=== PATIENT | female | born 1950 | race Caucasian/White ===

== ENCOUNTER 2017-06-07 11:31 | Inpatient (IN) | payer MEDICARE, OTHER ==
[2017-06-07] MEDS ORDERED: Ondansetron 4 MG/2 ML SDV IVPUSH ONE (12:23)
[2017-06-07] MEDS ORDERED: Sodium Chloride 0.9% 1,000 ML IV SCH (12:30)
[2017-06-07] MEDS: Sodium Chloride 0.9% 10 ML Syringe FLUSH PRN (12:42)
--- NOTE | 2017-06-07 13:43 | EDM.PDOCBH ---
ED HPI GENERAL MEDICAL PROBLEM - General Chief Complaint: Drug or Alcohol Abuse Stated Complaint: SENT BY [facility] Time Seen by Provider: 06/07/17 12:00 Source of Information: Reports: Patient, Family, Provider History Limitations: Reports: No Limitations - History of Present Illness INITIAL COMMENTS - FREE TEXT/NARRATIVE: The patient presents for detox. She has been a daily drinker of whiskey for years. She last drank Tuesday. Her family talked to her about her problems and brought her to [facility] for help. At [facility]'s office she was nauseated and vomited. She also was shaking. She does not have many other health problems. She is looking to get some help. She denies fever, chills, cough, chest pain, or shortness of breath. 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: Psychiatric History: Reports: Addiction - Past Surgical History Musculoskeletal Surgical History: Reports: Other (See Below) Social & Family History - Family History Family Medical History: Noncontributory Cardiac: Reports: [place] Neurological: Reports: CVA Endocrine/Metabolic: Reports: Diabetes, type II - Tobacco Use Smoking Status *Q: Current Every Day Smoker Years of Tobacco use: 30 Packs/Tins Daily: 0.2 Second Hand Smoke Exposure: No - Alcohol Use Days Per Week of Alcohol Use: 7 Number of Drinks Per Day: 10 Total Drinks Per Week: 70 Date of Last Drink: 07/03/17 - Recreational Drug Use Recreational Drug Use: No ED ROS GENERAL - Review of Systems Review Of Systems: See Below Constitutional: Reports: No Symptoms HEENT: Reports: No Symptoms Respiratory: Reports: No Symptoms Cardiovascular: Reports: No Symptoms Endocrine: Reports: No Symptoms GI/Abdominal: Reports: No Symptoms : Reports: No Symptoms Musculoskeletal: Reports: No Symptoms Skin: Reports: No Symptoms ED EXAM, BEHAVIORAL HEALTH - Physical Exam Exam: See Below Exam Limited By: No Limitations General Appearance: Alert, No Apparent Distress Ears: Normal External Exam Nose: Normal Inspection Head: Atraumatic, Normocephalic Neck: Normal Inspection Respiratory/Chest: No Respiratory Distress, Lungs Clear, Normal Breath Sounds Cardiovascular: Regular Rate, Rhythm, No Edema, No Murmur GI/Abdominal: Soft, Non-Tender, No Organomegaly, No Mass Back Exam: Normal Inspection Extremities: Normal Inspection COURSE, BEHAVIORAL HEALTH COMP - Course Vital Signs: Last Vital Signs Temp 98.5 F 06/07/17 11:42 Pulse 93 06/07/17 11:42 Resp 18 06/07/17 11:42 BP 143/102 H 06/07/17 11:42 Pulse Ox 98 06/07/17 11:42 Orders, Labs, Meds: Active Orders 24 hr Category Date Time Status Cardiac Monitoring [RC] . DIRECTED Care 06/07/17 12:22 Active Peripheral IV Care [RC] . DIRECTED Care 06/07/17 12:23 Active Sodium Chloride 0.9% [Normal Saline] 1,000 ml Med 06/07/17 12:30 Active IV .BOLUS Sodium Chloride 0.9% [Saline Flush] Med 06/07/17 12:22 Active 10 ml FLUSH ASDIRECTED PRN Peripheral IV Insertion Adult [OM.PC] Stat Oth 06/07/17 12:22 Ordered Medication Orders Sodium Chloride (Normal Saline) 1,000 mls @ 1,000 mls/hr IV .BOLUS JESSA Last Admin: 06/07/17 12:41 Dose: 1,000 mls/hr Sodium Chloride (Saline Flush) 10 ml FLUSH ASDIRECTED PRN PRN Reason: Keep Vein Open Last Admin: 06/07/17 12:42 Dose: 10 ml Laboratory Tests 06/07/17 06/07/17 06/07/17 Range/Units 12:40 12:40 12:52 WBC 4.06 (3.98-10.04) K/mm3 RBC 3.38 L (3.98-5.22) M/mm3 Hgb 12.5 (11.2-15.7) gm/L Hct 35.7 (34.1-44.9) % MCV 105.6 H (79.4-94.8) fl MCH 37.0 H (25.6-32.2) pg MCHC 35.0 (32.2-35.5) g/dl RDW Std Deviation 55.0 H (36.4-46.3) fL Plt Count 190 (182-369) K/mm3 MPV 9.2 L (9.4-12.3) fl Neut % (Auto) 64.0 (34.0-71.1) % Lymph % (Auto) 20.2 (19.3-51.7) % [place] % (Auto) 13.8 H (4.7-12.5) % Eos % (Auto) 0.5 L (0.7-5.8) Baso % (Auto) 1.0 (0.1-1.2) % Neut # (Auto) 2.60 (1.56-6.13) K/mm3 Lymph # (Auto) 0.82 L (1.18-3.74) K/mm3 [place] # (Auto) 0.56 H (0.24-0.36) K/mm3 Eos # (Auto) 0.02 L (0.04-0.36) K/mm3 Baso # (Auto) 0.04 (0.01-0.08) K/mm3 Manual Slide Review Abnormal smear Sodium 140 (136-145) mEq/L Potassium 3.5 (3.5-5.1) mEq/L Chloride 101 (98-107) mEq/L Carbon Dioxide 25 (21-32) mEq/L Anion Gap 17.5 H (5-15) BUN 8 (7-18) mg/dL Creatinine 0.6 (0.55-1.02) mg/dL Est Cr Clr Drug Dosing 64.46 mL/min Estimated GFR (MDRD) > 60 (>60) mL/min BUN/Creatinine Ratio 13.3 L (14-18) Glucose 109 (80-115) mg/dL Calcium 8.9 (8.5-10.1) mg/dL Total Bilirubin 1.3 H (0.2-1.0) mg/dL AST 100 H (15-37) U/L ALT 40 (14-59) U/L Alkaline Phosphatase 120 H (46-116) U/L Total Protein 7.6 (6.4-8.2) g/dl Albumin 3.7 (3.4-5.0) g/dl Globulin 3.9 gm/dL Albumin/Globulin Ratio 1.0 (1-2) Lipase 158 (73-393) U/L Urine Opiates Screen Negative (NEGATIVE) Ur Buprenorphine Scrn Negative (NEGATIVE) Ur Oxycodone Screen Negative (NEGATIVE) Urine Methadone Screen Negative (NEGATIVE) Ur Propoxyphene Screen Negative (NEGATIVE) Ur Barbiturates Screen Negative (NEGATIVE) Ur Tricyclics Screen Negative (NEGATIVE) Ur Phencyclidine Scrn Negative (NEGATIVE) Ur Amphetamine Screen Negative (NEGATIVE) U Methamphetamines Scrn Negative (NEGATIVE) U Benzodiazepines Scrn Negative (NEGATIVE) U Cocaine Metab Screen Negative (NEGATIVE) U Marijuana (THC) Screen Negative (NEGATIVE) Ethyl Alcohol 0.03 (0.00) gm% Medications Generic Name Dose Route Start Last Admin Trade Name Freq PRN Reason Stop Dose Admin Sodium Chloride 1,000 mls @ 1,000 mls/hr 06/07/17 12:30 06/07/17 12:41 Normal Saline IV 1,000 mls/hr .BOLUS JESSA Administration Sodium Chloride 10 ml 06/07/17 12:22 06/07/17 12:42 Saline Flush FLUSH 10 ml ASDIRECTED PRN Administration Keep Vein Open Discontinued Medications Generic Name Dose Route Start Last Admin Trade Name Freq PRN Reason Stop Dose Admin Ondansetron HCl 4 mg 06/07/17 12:23 06/07/17 12:42 Zofran IVPUSH 06/07/17 12:24 4 mg ONETIME ONE Administration Re-Assessment/Re-Exam: I ordered an IV NS 1L bolus, zofran 4mg IV, labs and UDS. Her WBC is normal at 4.06. Her Hgb is 12.5. Her anion gap was 17.5. He AST was elevated at 100. Her Alk Phos was elevated at 120. Her UDS was negative. Her ETOH was slightly elevated at 0.03. I called Dr Martinez and he agreed to the admission. Departure - Departure Time of Disposition: 14:20 Disposition: Admitted As Inpatient 64 Clinical Impression: Alcohol abuse Alcohol withdrawal syndrome Qualifiers: Complication of substance-induced condition: uncomplicated Qualified Code(s): F10.230 - Alcohol dependence with withdrawal, uncomplicated - Discharge Information - My Orders Last 24 Hours: My Active Orders 06/07/17 12:22 Cardiac Monitoring [RC] . DIRECTED Sodium Chloride 0.9% [Saline Flush] 10 ml FLUSH ASDIRECTED PRN Peripheral IV Insertion Adult [OM.PC] Stat 06/07/17 12:23 Peripheral IV Care [RC] . DIRECTED 06/07/17 12:30 Sodium Chloride 0.9% [Normal Saline] 1,000 ml IV .BOLUS - Assessment/Plan Last 24 Hours: My Active Orders 06/07/17 12:22 Cardiac Monitoring [RC] . DIRECTED Sodium Chloride 0.9% [Saline Flush] 10 ml FLUSH ASDIRECTED PRN Peripheral IV Insertion Adult [OM.PC] Stat 06/07/17 12:23 Peripheral IV Care [RC] . DIRECTED 06/07/17 12:30 Sodium Chloride 0.9% [Normal Saline] 1,000 ml IV .BOLUS
--- NOTE | 2017-06-07 14:21 | PCM.HP ---
H&P History of Present Illness - General Date of Service: 06/07/17 Admit Problem/Dx: ETOH Withdrawal Source of Information: Patient, Family, Old Records, Provider, RN Notes Reviewed History Limitations: Reports: Physical Impairment - History of Present Illness Initial Comments - Free Text/Narative: This is a 66 yo elderly white female with past medical hx/o hypertension, hyperlipidemia, henderson's palsy, nicotine dependence, osteoporosis, and glaucoma who presents to the emergency department for alcohol detoxification and was found to have a blood alcohol level of 0.03 Patient carries a history of chronic alcohol abuse. She drinks about half a fifth of whiskey a day. She also carries a hx/o untreated depression according to her. Her depression got worse which led to increased alcohol intake after the of her due to cancer about 3.5 years ago. Her alcoholism was further aggravated by the recent of her 2 brothers-one in October of 2016 and the other in November of this year. Patient was initially seen today at the [facility] substance abuse clinic. However she started having symptoms and therefore she was referred to the emergency department for further treatment. Her initial workup in the emergency department shows a CBC remarkable for RBC of 3.38, MVC of 105.6, MCH of 37, monophils of 13.8%, eosinophils of 0.5%, lymphocytes of 0.82, and monocytes of 0.56. Her chemistry is significant for an anion gap of 17.5, total bilirubin of 1.3, AST of 100, and alkaline phosphatase of 120. Her UDS is negative but her JESE level is 0.03. Patient is being admitted for alcohol detoxification. She is full code. 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: Psychiatric History: Reports: Addiction - Past Surgical History Musculoskeletal Surgical History: Reports: Other (See Below) Social & Family History - Family History Family Medical History: Noncontributory Cardiac: Reports: [place] Neurological: Reports: CVA Endocrine/Metabolic: Reports: Diabetes, type II - Tobacco Use Smoking Status *Q: Current Every Day Smoker Years of Tobacco use: 30 Packs/Tins Daily: 0.2 Second Hand Smoke Exposure: No - Alcohol Use Days Per Week of Alcohol Use: 7 Number of Drinks Per Day: 10 Total Drinks Per Week: 70 Date of Last Drink: 07/03/17 - Recreational Drug Use Recreational Drug Use: No H&P Review of Systems - Review of Systems: Review Of Systems: See Below General: Denies: Fever, Chills, Malaise, Weakness, Fatigue HEENT: Reports: No Symptoms Pulmonary: Denies: Shortness of Breath Cardiovascular: Denies: Chest Pain, Palpitations, Dyspnea on Exertion, Lightheadedness Gastrointestinal: Reports: Nausea, Vomiting. Denies: Abdominal Pain, Decreased Appetite Genitourinary: Reports: No Symptoms Musculoskeletal: Reports: No Symptoms Skin: Denies: Jaundice, Pallor, Rash Psychiatric: Denies: Confusion, Depression, Anxiety, Agitation, Cravings, Hallucinations, Suicidal Ideation Neurological: Reports: Tremors, Gait Disturbance. Denies: Confusion, Pre- Existing Deficit, Difficulty Walking, Weakness Hematologic/Lymphatic: Reports: No Symptoms Immunologic: Reports: No Symptoms Exam - Exam Exam: See Below - Vital Signs Vital Signs: Last Vital Signs Temp 36.9 C 06/07/17 11:42 Pulse 93 06/07/17 11:42 Resp 18 06/07/17 11:42 BP 143/102 H 06/07/17 11:42 Pulse Ox 98 06/07/17 11:42 Weight: 53.07 kg - Exam General: Alert, Oriented, Cooperative, Other (facial asymmetry) HEENT: Conjunctiva Clear, EACs Clear, Hearing Intact, Mucosa Moist & [place], Nares Patent, Posterior Pharynx Clear, Pupils Equal, Other (Lateral Nystagmus). No: EOMI Neck: Supple, Trachea Midline, Full Range of Motion, Thyromegaly Lungs: Clear to Auscultation, Normal Respiratory Effort Cardiovascular: Regular Rate, Regular Rhythm GI/Abdominal Exam: Normal Bowel Sounds, Soft, Non-Tender, No Organomegaly, No Distention, No Abnormal Bruit, No Mass, Pelvis Stable (Female) Exam: Deferred Back Exam: Normal Inspection, Decreased Range of Motion Extremities: Normal Inspection, Normal Range of Motion, Non-Tender, No Pedal Edema, Normal Capillary Refill Peripheral Pulses: 2+: Posterior Tibial (L), Posterior Tibial (R), Dorsalis Pedis (L), Dorsalis Pedis (R) Skin: Warm, Dry, Intact Neuro Extensive - Mental Status: Oriented x3, Normal Cognition, Memory Intact Neuro Extensive - Motor, Sensory, Reflexes: CN II-XII Intact (Limited but intact ), Abnormal Gait Psychiatric: Alert, Normal Affect, Withdrawal Symptoms (mild tremor and nystagmus). No: Anxious, Agitated, Suicidal Ideation, Homicidal Ideation, Hallucinations - Patient Data Lab Results Last 24 hrs: Laboratory Results - last 24 hr 06/07/17 06/07/17 06/07/17 Range/Units 12:40 12:40 12:52 WBC 4.06 (3.98-10.04) K/mm3 RBC 3.38 L (3.98-5.22) M/mm3 Hgb 12.5 (11.2-15.7) gm/L Hct 35.7 (34.1-44.9) % MCV 105.6 H (79.4-94.8) fl MCH 37.0 H (25.6-32.2) pg MCHC 35.0 (32.2-35.5) g/dl RDW Std Deviation 55.0 H (36.4-46.3) fL Plt Count 190 (182-369) K/mm3 MPV 9.2 L (9.4-12.3) fl Neut % (Auto) 64.0 (34.0-71.1) % Lymph % (Auto) 20.2 (19.3-51.7) % [place] % (Auto) 13.8 H (4.7-12.5) % Eos % (Auto) 0.5 L (0.7-5.8) Baso % (Auto) 1.0 (0.1-1.2) % Neut # (Auto) 2.60 (1.56-6.13) K/mm3 Lymph # (Auto) 0.82 L (1.18-3.74) K/mm3 [place] # (Auto) 0.56 H (0.24-0.36) K/mm3 Eos # (Auto) 0.02 L (0.04-0.36) K/mm3 Baso # (Auto) 0.04 (0.01-0.08) K/mm3 Manual Slide Review Abnormal smear Sodium 140 (136-145) mEq/L Potassium 3.5 (3.5-5.1) mEq/L Chloride 101 (98-107) mEq/L Carbon Dioxide 25 (21-32) mEq/L Anion Gap 17.5 H (5-15) BUN 8 (7-18) mg/dL Creatinine 0.6 (0.55-1.02) mg/dL Est Cr Clr Drug Dosing 64.46 mL/min Estimated GFR (MDRD) > 60 (>60) mL/min BUN/Creatinine Ratio 13.3 L (14-18) Glucose 109 (80-115) mg/dL Calcium 8.9 (8.5-10.1) mg/dL Total Bilirubin 1.3 H (0.2-1.0) mg/dL AST 100 H (15-37) U/L ALT 40 (14-59) U/L Alkaline Phosphatase 120 H (46-116) U/L Total Protein 7.6 (6.4-8.2) g/dl Albumin 3.7 (3.4-5.0) g/dl Globulin 3.9 gm/dL Albumin/Globulin Ratio 1.0 (1-2) Lipase 158 (73-393) U/L Urine Opiates Screen Negative (NEGATIVE) Ur Buprenorphine Scrn Negative (NEGATIVE) Ur Oxycodone Screen Negative (NEGATIVE) Urine Methadone Screen Negative (NEGATIVE) Ur Propoxyphene Screen Negative (NEGATIVE) Ur Barbiturates Screen Negative (NEGATIVE) Ur Tricyclics Screen Negative (NEGATIVE) Ur Phencyclidine Scrn Negative (NEGATIVE) Ur Amphetamine Screen Negative (NEGATIVE) U Methamphetamines Scrn Negative (NEGATIVE) U Benzodiazepines Scrn Negative (NEGATIVE) U Cocaine Metab Screen Negative (NEGATIVE) U Marijuana (THC) Screen Negative (NEGATIVE) Ethyl Alcohol 0.03 (0.00) gm% Result Diagrams: 06/07/17 12:40 06/07/17 12:40 *Q Meaningful Use (ADM) - VTE *Q VTE Criteria *Q: - Stroke *Q Stroke Criteria *Q: - AMI *Q AMI Criteria *Q: Problem List Initiated/Reviewed/Updated: Yes Orders Last 24hrs: Active Orders 24 hr Category Date Time Status Cardiac Monitoring [RC] . DIRECTED Care 06/07/17 12:22 Active Peripheral IV Care [RC] . DIRECTED Care 06/07/17 12:23 Active Sodium Chloride 0.9% [Normal Saline] 1,000 ml Med 06/07/17 12:30 Active IV .BOLUS Sodium Chloride 0.9% [Saline Flush] Med 06/07/17 12:22 Active 10 ml FLUSH ASDIRECTED PRN Peripheral IV Insertion Adult [OM.PC] Stat Oth 06/07/17 12:22 Ordered Medication Orders Sodium Chloride (Normal Saline) 1,000 mls @ 1,000 mls/hr IV .BOLUS JESSA Last Admin: 06/07/17 12:41 Dose: 1,000 mls/hr Sodium Chloride (Saline Flush) 10 ml FLUSH ASDIRECTED PRN PRN Reason: Keep Vein Open Last Admin: 06/07/17 12:42 Dose: 10 ml Assessment/Plan Comment:: Assessment: Acute: ETOH Intoxication with Mild Withdrawal Symptoms - JESE level 0.03 - Presented to [facility] symptomatic and was referred to ED for Detox - CIWA protocol: CIWA score on presentation to ED was mild - Ativan/Librium/Clonidine/Topamax - Hydralzine and IVP BB for HR/BP control - Ativan for Abortive Seizure and Withdrawal Symptoms Chronic ETOH Abuse - Drinks 1/2 a fifth of whiskey a day - Her drinking got worse after she lost her to cancer about 3.5 years ago and further aggravated by recent deaths of her 2 brothers: Last Oct and November of this year - Risk factor: Depression untreated - SA/Psych consult Chronic Depression - Does not sleep well at night - Lost of interest and just wants to stay home a lot - Got worse when she lost her and aggravated recent lost of her 2 siblings - She was never suicidal or homocidal - Psych consult Tobacco Dependence - Smokes 6 cigarettes a day - Nicotine patch daily - Counseled on Smoking Cessation Chronic: HTN HLD Osteoporosis Glaucoma [place] Palsy Depression Plan: Admit to ICU MVI, Folic, Acid and Thiamine CIWA protocol Mg Level this am Obtain home med list from her local pharmacy Vit B12 level (MCV elevated) Ativan for Abortive Seizure and Withdrawal Symptoms PRN meds for Withdrawal Symptoms Aspiration/Seizure Precautions SW/CM d/c planning SA/Psych consult Code Status: 1
[2017-06-07] MEDS ORDERED: Metoclopramide 10 MG/2 ML SDV IVPUSH ONE (14:31)
[2017-06-07] MEDS ORDERED: LORazepam 2 MG/ML MDV IVPUSH ONE (14:32)
[2017-06-07] MEDS ORDERED: Metoprolol Tartrate 5 MG/5 ML SDV IVPUSH PRN (14:55)
[2017-06-07] MEDS ORDERED: Albuterol/Ipratropium 3.0-0.5 MG/3 ML Neb Soln NEB PRN (14:55)
[2017-06-07] MEDS ORDERED: Promethazine 12.5 MG in Sodium Chloride 0.9% 50 ML IV PRN (14:55)
[2017-06-07] MEDS ORDERED: Ondansetron 4 MG/2 ML SDV IV PRN (14:55)
[2017-06-07] MEDS ORDERED: Docusate Sodium 100 MG Cap PO PRN (14:55)
[2017-06-07] MEDS ORDERED: Bisacodyl 5 MG Tab PO PRN (14:55)
[2017-06-07] MEDS ORDERED: Acetaminophen/HYDROcodone 325-5 MG Tab PO PRN (14:55)
[2017-06-07] MEDS ORDERED: LORazepam 2 MG/ML MDV IVPUSH PRN ×3 (14:55→20:10)
[2017-06-07] MEDS ORDERED: Polyethylene Glycol 3350 Powder 17 GM Packet PO PRN (14:55)
[2017-06-07] MEDS ORDERED: HYDROmorphone 0.5 MG/0.5 ML Syringe IVPUSH PRN (14:55)
[2017-06-07] MEDS ORDERED: Acetaminophen 325 MG Tab PO PRN (14:55)
[2017-06-07] MEDS ORDERED: hydrALAZINE 20 MG/ML SDV IVPUSH PRN (14:55)
[2017-06-07] MEDS ORDERED: Folic Acid 1 MG Tab PO ONE ×2 (14:57→18:00)
[2017-06-07] MEDS ORDERED: chlordiazePOXIDE 25 MG Cap PO ONE ×2 (15:01→18:00)
[2017-06-07] MEDS ORDERED: cloNIDine 0.1 MG Tab PO PRN (15:05)
[2017-06-07] MEDS ORDERED: Cyanocobalamin (Vitamin B12) 1,000 MCG/ML SDV SUBCUT ONE (16:00)
[2017-06-07] MEDS ORDERED: QUEtiapine 25 MG Tab PO ONE (16:00)
[2017-06-07] MEDS ORDERED: Famotidine 20 MG/2 ML SDV IVPUSH ONE (16:00)
[2017-06-07] MEDS ORDERED: Nicotine 14 MG/24 Hr Patch TRDERM ONE (16:23)
[2017-06-07] MEDS ORDERED: Thiamine 200 MG in Sodium Chloride 0.9% 100 ML IV ONE (16:30)
[2017-06-07] MEDS: Sodium Chloride 0.9% 1,000 ML IV SCH (17:34)
[2017-06-07] MEDS: QUEtiapine 25 MG Tab PO SCH (20:34)
[2017-06-07] MEDS ORDERED: chlordiazePOXIDE 25 MG Cap PO PRN (21:00)
[2017-06-07] MEDS ORDERED: Non-Formulary Medication 1 Each (Alendronate 70 MG) PO SCH (22:30)
[2017-06-08] MEDS: Sodium Chloride 0.9% 1,000 ML IV SCH ×3 (03:11→23:41)
--- NOTE | 2017-06-08 07:59 | PCM.PN ---
- General Info Date of Service: 06/08/17 Admission Dx/Problem (Free Text): ETOH Withdrawal Subjective Update: Follow Up Functional Status: Reports: Pain Controlled, Tolerating Diet, Ambulating, Urinating - Review of Systems General: Reports: Weakness. Denies: Fever, Fatigue, Malaise, Chills HEENT: Reports: No Symptoms Pulmonary: Denies: Shortness of Breath Cardiovascular: Denies: Chest Pain, Palpitations, Dyspnea on Exertion Gastrointestinal: Reports: Diarrhea, Flatus. Denies: Abdominal Pain, Decreased Appetite, Difficulty Swallowing, Nausea, Vomiting Genitourinary: Denies: Dysuria Musculoskeletal: Reports: No Symptoms Skin: Denies: Cyanosis, Rash Neurological: Reports: Weakness, Gait Disturbance. Denies: Confusion Psychiatric: Denies: Depression, Anxiety, Agitation, Hallucinations, Suicidal Ideation Systems Review Comment:: No overnight issues. She slept really good. She states "I feel good but weak". She is not suicidal. Her CIWA is 5 this am. Her appetite has improved. K is 2.4 and Mg is 1.1. PT and OT have not been in to see her. - Patient Data Vitals - Most Recent: Last Vital Signs Temp 36.3 C 06/08/17 00:00 Pulse 90 06/08/17 04:00 Resp 20 06/08/17 04:00 BP 146/86 H 06/08/17 04:00 Pulse Ox 96 06/08/17 04:00 Weight - Most Recent: 57.017 kg I&O - Last 24 Hours: Intake & Output 06/07/17 06/08/17 06/08/17 22:59 06:59 14:59 Intake Total 200 1635 Output Total 650 950 Balance -450 685 Lab Results Last 24 Hours: Laboratory Results - last 24 hr 06/08/17 06/08/17 Range/Units 05:54 05:54 WBC 4.71 (3.98-10.04) K/mm3 RBC 2.89 L (3.98-5.22) M/mm3 Hgb 10.3 L (11.2-15.7) gm/L Hct 31.0 L (34.1-44.9) % MCV 107.3 H (79.4-94.8) fl MCH 35.6 H (25.6-32.2) pg MCHC 33.2 (32.2-35.5) g/dl RDW Std Deviation 55.2 H (36.4-46.3) fL Plt Count 156 L (182-369) K/mm3 MPV 9.2 L (9.4-12.3) fl Neut % (Auto) 64.4 (34.0-71.1) % Lymph % (Auto) 22.5 (19.3-51.7) % Graham % (Auto) 11.3 (4.7-12.5) % Eos % (Auto) 0.6 L (0.7-5.8) Baso % (Auto) 0.6 (0.1-1.2) % Neut # (Auto) 3.03 (1.56-6.13) K/mm3 Lymph # (Auto) 1.06 L (1.18-3.74) K/mm3 Graham # (Auto) 0.53 H (0.24-0.36) K/mm3 Eos # (Auto) 0.03 L (0.04-0.36) K/mm3 Baso # (Auto) 0.03 (0.01-0.08) K/mm3 Manual Slide Review Abnormal smear Sodium 142 (136-145) mEq/L Potassium 2.4 L* (3.5-5.1) mEq/L Chloride 106 (98-107) mEq/L Carbon Dioxide 26 (21-32) mEq/L Anion Gap 12.4 (5-15) BUN 4 L (7-18) mg/dL Creatinine 0.6 (0.55-1.02) mg/dL Est Cr Clr Drug Dosing 64.46 mL/min Estimated GFR (MDRD) > 60 (>60) mL/min BUN/Creatinine Ratio 6.7 L (14-18) Glucose 103 (80-115) mg/dL Calcium 7.3 L (8.5-10.1) mg/dL Magnesium 1.1 L (1.8-2.4) mg/dl Med Orders - Current: Current Medications Acetaminophen (Tylenol) 650 mg PO Q4H PRN PRN Reason: Pain (Mild 1-3)/fever Hydrocodone Bitart/Acetaminophen (Jackson 325-5 Mg) 1 tab PO Q4H PRN PRN Reason: Pain (moderate 4-6) Albuterol/Ipratropium (Duoneb 3.0-0.5 Mg/3 Ml) 3 ml NEB Q4H PRN PRN Reason: Shortness Of Breath/wheezing Bisacodyl (Dulcolax) 5 mg PO DAILY PRN PRN Reason: Constipation Chlordiazepoxide HCl (Librium) 25 mg PO TID PRN PRN Reason: Withdrawal Symptoms Last Admin: 06/07/17 20:34 Dose: 25 mg Clonidine HCl (Catapres) 0.1 mg PO Q8H PRN PRN Reason: Withdrawal Symptoms Last Admin: 06/07/17 20:34 Dose: 0.1 mg Cyanocobalamin (Vitamin B12) 1,000 mcg PO DAILY [facility] Docusate Sodium (Colace) 100 mg PO BID PRN PRN Reason: Constipation Ezetimibe (Zetia) 10 mg PO DAILY [facility] Famotidine (Pepcid) 20 mg PO DAILY [facility] Fluoxetine HCl (Prozac) 20 mg PO DAILY [facility] Folic Acid (Folic Acid) 1 mg PO DAILY [facility] Hydralazine HCl (Apresoline) 20 mg IVPUSH Q4H PRN PRN Reason: Hypertension Hydromorphone HCl (Dilaudid) 0.25 mg IVPUSH Q2H PRN PRN Reason: Pain (severe 7-10) Promethazine HCl 12.5 mg/ (Sodium Chloride) 50.5 mls @ 100 mls/hr IV Q6H PRN PRN Reason: Nausea/Vomiting Sodium Chloride (Normal Saline) 1,000 mls @ 100 mls/hr IV ASDIRECTED [facility] Last Admin: 06/08/17 03:11 Dose: 100 mls/hr Potassium Chloride 10 meq/ (Premix) 100 mls @ 100 mls/hr IV Q1H [facility] Stop: 06/08/17 13:29 Magnesium Sulfate 2 gm/ Premix 50 mls @ 25 mls/hr IV Q2H [facility] Stop: 06/08/17 13:44 Latanoprost (Xalatan 0.005% Ophth Soln) 0 ml EYEBOTH BEDTIME [facility] Lorazepam (Ativan) 2 mg IVPUSH Q4H PRN PRN Reason: Seizures Lorazepam (Ativan) 0 mg IVPUSH ASDIRECTED PRN; Protocol PRN Reason: Withdrawal Symptoms Last Admin: 06/07/17 20:34 Dose: 1 mg Magnesium Sulfate (Pharmacy To Dose - Magnesium Replacement) 1 dose .XX ASDIRECTED [facility] Metoprolol Tartrate (Lopressor) 5 mg IVPUSH Q4H PRN PRN Reason: Tachycardia Miscellaneous Information (Remove Patch) 1 ea TRDERM DAILY [facility] Multivitamins (Thera) 1 each PO DAILY [facility] Nicotine (Habitrol) 14 mg TRDERM DAILY [facility] Ondansetron HCl (Zofran) 4 mg IV Q6H PRN PRN Reason: Nausea/Vomiting Polyethylene Glycol (Miralax) 17 gm PO DAILY PRN PRN Reason: Constipation Potassium Chloride (Pharmacy To Dose - Potassium Replacement) 1 dose .XX ASDIRECTED [facility] Quetiapine Fumarate (Seroquel) 25 mg PO BID [facility] Last Admin: 06/07/17 20:34 Dose: 25 mg Senna/Docusate Sodium (Senna Plus) 1 tab PO BID PRN PRN Reason: Constipation Simvastatin (Zocor) 10 mg PO DAILY [facility] Sodium Chloride (Saline Flush) 10 ml FLUSH ASDIRECTED PRN PRN Reason: Keep Vein Open Last Admin: 06/07/17 12:42 Dose: 10 ml Thiamine HCl (Vitamin B-1) 100 mg PO BEDTIME [facility] Vitamin B Complex/Vit C/Folic Acid (Nephrocaps) 1 tab PO DAILY [facility] Discontinued Medications Chlordiazepoxide HCl (Librium) 50 mg PO ONETIME ONE Stop: 06/07/17 15:02 Last Admin: 06/07/17 18:01 Dose: Not Given Chlordiazepoxide HCl (Librium) 50 mg PO ONETIME ONE Stop: 06/07/17 18:01 Last Admin: 06/07/17 17:58 Dose: 50 mg Cyanocobalamin (Vitamin B12) 1,000 mcg SUBCUT ONETIME ONE Stop: 06/07/17 16:01 Last Admin: 06/07/17 17:28 Dose: 1,000 mcg Famotidine (Pepcid) 20 mg IVPUSH ONETIME ONE Stop: 06/07/17 16:01 Last Admin: 06/07/17 17:28 Dose: 20 mg Folic Acid (Folic Acid) 1 mg PO ONETIME ONE Stop: 06/07/17 14:58 Last Admin: 06/07/17 18:01 Dose: Not Given Folic Acid (Folic Acid) 1 mg PO ONETIME ONE Stop: 06/07/17 18:01 Last Admin: 06/07/17 17:58 Dose: 1 mg Sodium Chloride (Normal Saline) 1,000 mls @ 1,000 mls/hr IV .BOLUS [facility] Last Admin: 06/07/17 12:41 Dose: 1,000 mls/hr Thiamine HCl 200 mg/ Sodium (Chloride) 102 mls @ 50 mls/hr IV ONETIME ONE Stop: 06/07/17 18:32 Last Admin: 06/07/17 17:28 Dose: 50 mls/hr Lorazepam (Ativan) 0.25 mg IVPUSH ONETIME ONE Stop: 06/07/17 14:33 Last Admin: 06/07/17 14:55 Dose: 0.25 mg Lorazepam (Ativan) 0 mg IVPUSH Q4H PRN; Protocol PRN Reason: Withdrawal Symptoms Last Admin: 06/07/17 18:00 Dose: 1 mg Metoclopramide HCl (Reglan) 5 mg IVPUSH ONETIME ONE Stop: 06/07/17 14:32 Last Admin: 06/07/17 14:53 Dose: 5 mg Nicotine (Habitrol) 14 mg TRDERM ONETIME ONE Stop: 06/07/17 16:24 Last Admin: 06/07/17 17:29 Dose: 14 mg Non-Formulary Medication (Alendronate) 70 mg PO WEEKLY [facility] Ondansetron HCl (Zofran) 4 mg IVPUSH ONETIME ONE Stop: 06/07/17 12:24 Last Admin: 06/07/17 12:42 Dose: 4 mg Quetiapine Fumarate (Seroquel) 25 mg PO ONETIME ONE Stop: 06/07/17 16:01 Last Admin: 06/07/17 17:28 Dose: 25 mg - Exam General: Alert, Oriented, Cooperative, No Acute Distress, Other (Facial Asymmetry) HEENT: Pupils Equal, Pupils Reactive, EOMI, Mucous Membr. Moist/[place] Neck: Supple, Trachea Midline, No JVD, No Thyromegaly Lungs: Clear to Auscultation, Normal Respiratory Effort Cardiovascular: Regular Rate, Regular Rhythm GI/Abdominal Exam: Normal Bowel Sounds, Soft, Non-Tender, No Organomegaly, No Distention, No Abnormal Bruit (Female) Exam: Deferred Back Exam: Normal Inspection, Decreased Range of Motion Extremities: Normal Inspection, Normal Range of Motion, Non-Tender, No Pedal Edema, Normal Capillary Refill Peripheral Pulses: 2+: Dorsalis Pedis (L), Dorsalis Pedis (R) Skin: Warm, Dry, Intact Neurological: No New Focal Deficit Psy/Mental Status: Alert, Normal Affect, Normal Mood - Problem List Review Problem List Initiated/Reviewed/Updated: Yes - My Orders Last 24 Hours: My Active Orders 06/07/17 14:55 Height and Weight [RC] 04 Intake and Output [RC] 04,16 Oxygen Therapy [RC] PRN Up With Assistance [RC] ASDIRECTED VTE/DVT Education [RC] , Vital Signs [RC] Q4HR Acetaminophen [Tylenol] 650 mg PO Q4H PRN Acetaminophen/HYDROcodone [Jackson 325-5 MG] 1 tab PO Q4H PRN Albuterol/Ipratropium [DuoNeb 3.0-0.5 MG/3 ML] 3 ml NEB Q4H PRN Bisacodyl [Dulcolax] 5 mg PO DAILY PRN Docusate Sodium [Colace] 100 mg PO BID PRN Docusate Sodium/Sennosides [Senna Plus] 1 tab PO BID PRN HYDROmorphone [Dilaudid] 0.25 mg IVPUSH Q2H PRN LORazepam [Ativan] 2 mg IVPUSH Q4H PRN Metoprolol Tartrate [Lopressor] 5 mg IVPUSH Q4H PRN Ondansetron [Zofran] 4 mg IV Q6H PRN Polyethylene Glycol 3350 [MiraLAX] 17 gm PO DAILY PRN Promethazine [Phenergan] 12.5 mg Sodium Chloride 0.9% [Normal Saline] 50 ml IV Q6H hydrALAZINE [Apresoline] 20 mg IVPUSH Q4H PRN Sequential Compression Device [OM.PC] Per Unit Routine Resuscitation Status Routine 06/07/17 14:56 Antiembolic Devices [RC] QSHIFT RT Aerosol Therapy [RC] ASDIRECTED Consult to Case Management [CONS] Routine Consult to [employer] Tutor [CONS] Routine Consult to Spiritual Care [CONS] Routine OT Evaluation and Treatment [CONS] Routine PT Evaluation and Treatment [CONS] Routine 06/07/17 15:00 CIWAA Assessment [RC] Q4H 06/07/17 15:04 Consult to Physician [CONS] Routine 06/07/17 15:05 cloNIDine [Catapres] 0.1 mg PO Q8H PRN 06/07/17 15:15 Sodium Chloride 0.9% [Normal Saline] 1,000 ml IV ASDIRECTED 06/07/17 16:30 Magnesium Rep Pharmacy to Dose [Pharmacy to Dose - Magnesium Replacement] 1 dose .XX ASDIRECTED Potassium Rep Pharmacy to Dose [Pharmacy to Dose - Potassium Replacement] 1 dose .XX ASDIRECTED 06/07/17 20:10 LORazepam [Ativan] See Protocol IVPUSH ASDIRECTED PRN 06/07/17 21:00 QUEtiapine [SEROquel] 25 mg PO BID chlordiazePOXIDE [Librium] 25 mg PO TID PRN 06/07/17 Dinner Regular Diet [DIET] 06/08/17 07:45 Magnesium Sulfate/Water [Magnesium Sulfate 2 GM in Water 50 ML] 2 gm Premix Bag 1 bag IV Q2H 06/08/17 09:00 Biotin/FA/Vit C/Vit B Complex [Nephrocaps] 1 tab PO DAILY Cyanocobalamin (Vitamin B12) [Vitamin B12] 1,000 mcg PO DAILY Ezetimibe [Zetia] 10 mg PO DAILY Famotidine [Pepcid] 20 mg PO DAILY Folic Acid 1 mg PO DAILY Multivitamins,Therapeutic [Thera] 1 each PO DAILY Nicotine [Habitrol] 14 mg TRDERM DAILY Remove Patch 1 ea TRDERM DAILY Simvastatin [Zocor] 10 mg PO DAILY 06/08/17 21:00 Latanoprost [Xalatan 0.005% Ophth Soln] 0 ml EYEBOTH BEDTIME Thiamine [Vitamin B-1] 100 mg PO BEDTIME 06/09/17 05:11 BASIC METABOLIC PANEL,BMP [CHEM] AM MAGNESIUM [CHEM] AM - Plan Plan:: Assessment: Acute: Chronic ETOH Abuse, CIWA 5 - Drinks 1/2 a fifth of whiskey a day - Her drinking got worse after she lost her to cancer about 3.5 years ago and further aggravated by recent deaths of her 2 brothers: Last Oct and November of this year - Risk factor: Depression untreated - Psych consulted - SA consult but was cancelled Acute on Chronic Depression, currently not suicidal - Does not sleep well at night - Lost of interest and just wants to stay home a lot - Got worse when she lost her and aggravated recent lost of her 2 siblings - She was never suicidal or homocidal - Psych consulted: recommended Prozac 20 mg po daily and AA/Pastoral Care Electrolytes Abnormality Hypokalemia and Hypomagnesemia - 2/2 inadequate intake - K 2.4 and Mg 1.1 - Repeat lab this afternoon - Pharmacy to replete and monitor Tobacco Dependence - Smokes 6 cigarettes a day - Nicotine patch daily - Counseled on Smoking Cessation Diarrhea - Watery x 3 - C. Diff test - PRN Imodium and Non-greasy meal Generalized Weakness - Unsteady gait/Wobbly - PT/OT evaluation - TFT and Vit D level Resolved: S/p ETOH Intoxication with Mild Withdrawal Symptoms - JESE level 0.03 - Presented to [facility] symptomatic and was referred to ED for Detox - CIWA protocol: CIWA score on presentation to ED was mild - Ativan/Librium/Clonidine/Topamax - Hydralzine and IVP BB for HR/BP control - Ativan for Abortive Seizure and Withdrawal Symptoms Chronic: HTN HLD Osteoporosis Glaucoma [place] Palsy Depression Plan: Patient is clinically stable Transfer to [facility] w/o Tele Continue current treatment Routine AM Labs Vit B12 level is normal, will d/c B12 supplement SW/CM d/c planning consult, patient was referred her by Carlos Sampson LAC Code Status: 1 Patient wants to leave Tuesday due to weakness and unsteady gait. She feels, she would not be ready tomorrow or in a couple of days. Informed patient, she still needs to be evaluated by PT/OT and d/c will be based on their recommendations.
[2017-06-08] MEDS: Multivitamins,Therapeutic Tab PO SCH (08:12)
[2017-06-08] MEDS: Potassium Chloride 10 MEQ in Premix Bag 1 BAG IV SCH ×6 (08:12→14:41)
[2017-06-08] MEDS: Famotidine 20 MG Tab PO SCH (08:12)
[2017-06-08] MEDS: Nicotine 14 MG/24 Hr Patch TRDERM SCH (08:12)
[2017-06-08] MEDS: Ezetimibe 10 MG Tab PO SCH (08:13)
[2017-06-08] MEDS: QUEtiapine 25 MG Tab PO SCH ×2 (08:13→20:07)
[2017-06-08] MEDS: Folic Acid 1 MG Tab PO SCH (08:13)
[2017-06-08] MEDS: FLUoxetine 20 MG Cap PO SCH (08:13)
[2017-06-08] MEDS: Simvastatin 10 MG Tab PO SCH (08:13)
[2017-06-08] MEDS: Biotin/Folic Acid/Vitamin C/Vitamin B Complex Tab PO SCH (08:21)
[2017-06-08] MEDS: Remove Patch **NICOTINE TRDERM SCH (08:41)
[2017-06-08] MEDS ORDERED: Cyanocobalamin (Vitamin B12) 1,000 MCG Tab PO SCH (09:00)
[2017-06-08] MEDS: Magnesium Sulfate/Water 2 GM in Premix Bag 1 BAG IV SCH ×3 (10:46→14:46)
[2017-06-08] MEDS ORDERED: Loperamide 2 MG Cap PO PRN (18:14)
[2017-06-08] MEDS: Latanoprost 0.005% Ophth Soln 2.5 ML Bottle EYEBOTH SCH (20:07)
[2017-06-08] MEDS: Thiamine 100 MG Tab PO SCH (20:07)
[2017-06-09] MEDS: FLUoxetine 20 MG Cap PO SCH (08:57)
[2017-06-09] MEDS: Ezetimibe 10 MG Tab PO SCH (08:57)
[2017-06-09] MEDS: QUEtiapine 25 MG Tab PO SCH ×2 (08:58→20:50)
[2017-06-09] MEDS: Nicotine 14 MG/24 Hr Patch TRDERM SCH (08:58)
[2017-06-09] MEDS: Simvastatin 10 MG Tab PO SCH (08:58)
[2017-06-09] MEDS: Multivitamins,Therapeutic Tab PO SCH (08:58)
[2017-06-09] MEDS: Folic Acid 1 MG Tab PO SCH (08:58)
[2017-06-09] MEDS: Famotidine 20 MG Tab PO SCH (08:58)
[2017-06-09] MEDS: Biotin/Folic Acid/Vitamin C/Vitamin B Complex Tab PO SCH (08:59)
[2017-06-09] MEDS: Remove Patch **NICOTINE TRDERM SCH (09:04)
[2017-06-09] MEDS: Potassium Chloride 20 MEQ Tab.ER PO SCH ×2 (09:58→13:27)
--- NOTE | 2017-06-09 10:27 | PCM.PN ---
- General Info Date of Service: 06/09/17 Admission Dx/Problem (Free Text): ETOH Withdrawal Subjective Update: Follow Up Functional Status: Reports: Pain Controlled, Tolerating Diet, Ambulating, Urinating. Denies: New Symptoms - Review of Systems General: Denies: Fever, Weakness, Fatigue, Malaise, Chills HEENT: Reports: No Symptoms Pulmonary: Denies: Shortness of Breath Cardiovascular: Denies: Chest Pain Gastrointestinal: Denies: Abdominal Pain, Nausea, Vomiting Genitourinary: Reports: No Symptoms Musculoskeletal: Reports: No Symptoms Skin: Reports: No Symptoms Neurological: Reports: No Symptoms, Weakness (mild), Gait Disturbance. Denies: Confusion, Difficulty Walking Psychiatric: Denies: Depression, Anxiety, Agitation, Hallucinations, Suicidal Ideation, Homicidal Ideation Systems Review Comment:: No overnight or acute issues. She is doing relatively well. She has no new complaints. - Patient Data Vitals - Most Recent: Last Vital Signs Temp 36.6 C 06/09/17 09:00 Pulse 78 06/09/17 03:00 Resp 16 06/09/17 09:00 BP 124/78 06/09/17 09:00 Pulse Ox 97 06/09/17 09:00 Weight - Most Recent: 57.198 kg I&O - Last 24 Hours: Intake & Output 06/08/17 06/09/17 06/09/17 22:59 06:59 14:59 Intake Total 2723 1793 Output Total 1200 1300 Balance 1523 493 Lab Results Last 24 Hours: Laboratory Results - last 24 hr 06/08/17 06/08/17 06/09/17 Range/Units 15:00 15:00 05:45 WBC (3.98-10.04) K/mm3 RBC (3.98-5.22) M/mm3 Hgb (11.2-15.7) gm/L Hct (34.1-44.9) % MCV (79.4-94.8) fl MCH (25.6-32.2) pg MCHC (32.2-35.5) g/dl RDW Std Deviation (36.4-46.3) fL Plt Count (182-369) K/mm3 MPV (9.4-12.3) fl Neut % (Auto) (34.0-71.1) % Lymph % (Auto) (19.3-51.7) % Logan % (Auto) (4.7-12.5) % Eos % (Auto) (0.7-5.8) Baso % (Auto) (0.1-1.2) % Neut # (Auto) (1.56-6.13) K/mm3 Lymph # (Auto) (1.18-3.74) K/mm3 Logan # (Auto) (0.24-0.36) K/mm3 Eos # (Auto) (0.04-0.36) K/mm3 Baso # (Auto) (0.01-0.08) K/mm3 Manual Slide Review Sodium 139 140 (136-145) mEq/L Potassium 3.8 3.3 L (3.5-5.1) mEq/L Chloride 106 107 (98-107) mEq/L Carbon Dioxide 23 23 (21-32) mEq/L Anion Gap 13.8 13.3 (5-15) BUN 5 L 5 L (7-18) mg/dL Creatinine 0.8 0.6 (0.55-1.02) mg/dL Est Cr Clr Drug Dosing 48.34 64.46 mL/min Estimated GFR (MDRD) > 60 > 60 (>60) mL/min BUN/Creatinine Ratio 6.3 L 8.3 L (14-18) Glucose 128 H 101 (80-115) mg/dL Calcium 7.7 L 7.3 L (8.5-10.1) mg/dL Magnesium 3.1 H 2.2 (1.8-2.4) mg/dl Free T4 0.65 L (0.76-1.46) ng/dL TSH 3rd Generation 2.958 (0.358-3.74) uIU/mL C.difficile 027-NAP1-B1 Presumptive negative C. difficile Tox (PCR) Negative 06/09/17 Range/Units 05:45 WBC 4.52 (3.98-10.04) K/mm3 RBC 2.86 L (3.98-5.22) M/mm3 Hgb 10.4 L (11.2-15.7) gm/L Hct 31.4 L (34.1-44.9) % MCV 109.8 H (79.4-94.8) fl MCH 36.4 H (25.6-32.2) pg MCHC 33.1 (32.2-35.5) g/dl RDW Std Deviation 55.3 H (36.4-46.3) fL Plt Count 162 L (182-369) K/mm3 MPV 9.4 (9.4-12.3) fl Neut % (Auto) 65.1 (34.0-71.1) % Lymph % (Auto) 21.2 (19.3-51.7) % Logan % (Auto) 10.2 (4.7-12.5) % Eos % (Auto) 1.3 (0.7-5.8) Baso % (Auto) 0.9 (0.1-1.2) % Neut # (Auto) 2.94 (1.56-6.13) K/mm3 Lymph # (Auto) 0.96 L (1.18-3.74) K/mm3 Logan # (Auto) 0.46 H (0.24-0.36) K/mm3 Eos # (Auto) 0.06 (0.04-0.36) K/mm3 Baso # (Auto) 0.04 (0.01-0.08) K/mm3 Manual Slide Review Abnormal smear Sodium (136-145) mEq/L Potassium (3.5-5.1) mEq/L Chloride (98-107) mEq/L Carbon Dioxide (21-32) mEq/L Anion Gap (5-15) BUN (7-18) mg/dL Creatinine (0.55-1.02) mg/dL Est Cr Clr Drug Dosing mL/min Estimated GFR (MDRD) (>60) mL/min BUN/Creatinine Ratio (14-18) Glucose (80-115) mg/dL Calcium (8.5-10.1) mg/dL Magnesium (1.8-2.4) mg/dl Free T4 (0.76-1.46) ng/dL TSH 3rd Generation (0.358-3.74) uIU/mL C.difficile 027-NAP1-B1 C. difficile Tox (PCR) Med Orders - Current: Current Medications Acetaminophen (Tylenol) 650 mg PO Q4H PRN PRN Reason: Pain (Mild 1-3)/fever Hydrocodone Bitart/Acetaminophen ([place] 325-5 Mg) 1 tab PO Q4H PRN PRN Reason: Pain (moderate 4-6) Albuterol/Ipratropium (Duoneb 3.0-0.5 Mg/3 Ml) 3 ml NEB Q4H PRN PRN Reason: Shortness Of Breath/wheezing Bisacodyl (Dulcolax) 5 mg PO DAILY PRN PRN Reason: Constipation Chlordiazepoxide HCl (Librium) 25 mg PO TID PRN PRN Reason: Withdrawal Symptoms Last Admin: 06/07/17 20:34 Dose: 25 mg Clonidine HCl (Catapres) 0.1 mg PO Q8H PRN PRN Reason: Withdrawal Symptoms Last Admin: 06/07/17 20:34 Dose: 0.1 mg Docusate Sodium (Colace) 100 mg PO BID PRN PRN Reason: Constipation Ezetimibe (Zetia) 10 mg PO DAILY [facility] Last Admin: 06/09/17 08:57 Dose: 10 mg Famotidine (Pepcid) 20 mg PO DAILY [facility] Last Admin: 06/09/17 08:58 Dose: 20 mg Fluoxetine HCl (Prozac) 20 mg PO DAILY [facility] Last Admin: 06/09/17 08:57 Dose: 20 mg Folic Acid (Folic Acid) 1 mg PO DAILY [facility] Last Admin: 06/09/17 08:58 Dose: 1 mg Hydralazine HCl (Apresoline) 20 mg IVPUSH Q4H PRN PRN Reason: Hypertension Hydromorphone HCl (Dilaudid) 0.25 mg IVPUSH Q2H PRN PRN Reason: Pain (severe 7-10) Promethazine HCl 12.5 mg/ (Sodium Chloride) 50.5 mls @ 100 mls/hr IV Q6H PRN PRN Reason: Nausea/Vomiting Latanoprost (Xalatan 0.005% Ophth Soln) 0 ml EYEBOTH BEDTIME [facility] Last Admin: 06/08/17 20:07 Dose: 1 drop Loperamide HCl (Imodium) 2 mg PO ASDIRECTED PRN PRN Reason: Diarrhea Lorazepam (Ativan) 2 mg IVPUSH Q4H PRN PRN Reason: Seizures Lorazepam (Ativan) 0 mg IVPUSH ASDIRECTED PRN; Protocol PRN Reason: Withdrawal Symptoms Last Admin: 06/07/17 20:34 Dose: 1 mg Magnesium Sulfate (Pharmacy To Dose - Magnesium Replacement) 1 dose .XX ASDIRECTED [facility] Metoprolol Tartrate (Lopressor) 5 mg IVPUSH Q4H PRN PRN Reason: Tachycardia Miscellaneous Information (Remove Patch) 1 ea TRDERM DAILY [facility] Last Admin: 06/09/17 09:04 Dose: 1 ea Multivitamins (Thera) 1 each PO DAILY [facility] Last Admin: 06/09/17 08:58 Dose: 1 each Nicotine (Habitrol) 14 mg TRDERM DAILY [facility] Last Admin: 06/09/17 08:58 Dose: 14 mg Ondansetron HCl (Zofran) 4 mg IV Q6H PRN PRN Reason: Nausea/Vomiting Polyethylene Glycol (Miralax) 17 gm PO DAILY PRN PRN Reason: Constipation Potassium Chloride (Pharmacy To Dose - Potassium Replacement) 1 dose .XX ASDIRECTED [facility] Potassium Chloride (Klor-Con M20) 40 meq PO Q4H [facility] Stop: 06/09/17 13:01 Last Admin: 06/09/17 09:58 Dose: 40 meq Quetiapine Fumarate (Seroquel) 25 mg PO BID [facility] Last Admin: 06/09/17 08:58 Dose: 25 mg Senna/Docusate Sodium (Senna Plus) 1 tab PO BID PRN PRN Reason: Constipation Simvastatin (Zocor) 10 mg PO DAILY [facility] Last Admin: 06/09/17 08:58 Dose: 10 mg Sodium Chloride (Saline Flush) 10 ml FLUSH ASDIRECTED PRN PRN Reason: Keep Vein Open Last Admin: 06/07/17 12:42 Dose: 10 ml Thiamine HCl (Vitamin B-1) 100 mg PO BEDTIME [facility] Last Admin: 06/08/17 20:07 Dose: 100 mg Vitamin B Complex/Vit C/Folic Acid (Nephrocaps) 1 tab PO DAILY [facility] Last Admin: 06/09/17 08:59 Dose: 1 tab Discontinued Medications Chlordiazepoxide HCl (Librium) 50 mg PO ONETIME ONE Stop: 06/07/17 15:02 Last Admin: 06/07/17 18:01 Dose: Not Given Chlordiazepoxide HCl (Librium) 50 mg PO ONETIME ONE Stop: 06/07/17 18:01 Last Admin: 06/07/17 17:58 Dose: 50 mg Cyanocobalamin (Vitamin B12) 1,000 mcg PO DAILY [facility] Last Admin: 06/08/17 08:13 Dose: 1,000 mcg Cyanocobalamin (Vitamin B12) 1,000 mcg SUBCUT ONETIME ONE Stop: 06/07/17 16:01 Last Admin: 06/07/17 17:28 Dose: 1,000 mcg Famotidine (Pepcid) 20 mg IVPUSH ONETIME ONE Stop: 06/07/17 16:01 Last Admin: 06/07/17 17:28 Dose: 20 mg Folic Acid (Folic Acid) 1 mg PO ONETIME ONE Stop: 06/07/17 14:58 Last Admin: 06/07/17 18:01 Dose: Not Given Folic Acid (Folic Acid) 1 mg PO ONETIME ONE Stop: 06/07/17 18:01 Last Admin: 06/07/17 17:58 Dose: 1 mg Sodium Chloride (Normal Saline) 1,000 mls @ 1,000 mls/hr IV .BOLUS [facility] Last Admin: 06/07/17 12:41 Dose: 1,000 mls/hr Sodium Chloride (Normal Saline) 1,000 mls @ 100 mls/hr IV ASDIRECTED [facility] Last Admin: 06/08/17 23:41 Dose: 100 mls/hr Thiamine HCl 200 mg/ Sodium (Chloride) 102 mls @ 50 mls/hr IV ONETIME ONE Stop: 06/07/17 18:32 Last Admin: 06/07/17 17:28 Dose: 50 mls/hr Potassium Chloride 10 meq/ (Premix) 100 mls @ 100 mls/hr IV Q1H [facility] Stop: 06/08/17 13:29 Last Admin: 06/08/17 14:41 Dose: 100 mls/hr Magnesium Sulfate 2 gm/ Premix 50 mls @ 25 mls/hr IV Q2H JESSA Stop: 06/08/17 13:44 Last Admin: 06/08/17 14:46 Dose: 25 mls/hr Lorazepam (Ativan) 0.25 mg IVPUSH ONETIME ONE Stop: 06/07/17 14:33 Last Admin: 06/07/17 14:55 Dose: 0.25 mg Lorazepam (Ativan) 0 mg IVPUSH Q4H PRN; Protocol PRN Reason: Withdrawal Symptoms Last Admin: 06/07/17 18:00 Dose: 1 mg Metoclopramide HCl (Reglan) 5 mg IVPUSH ONETIME ONE Stop: 06/07/17 14:32 Last Admin: 06/07/17 14:53 Dose: 5 mg Nicotine (Habitrol) 14 mg TRDERM ONETIME ONE Stop: 06/07/17 16:24 Last Admin: 06/07/17 17:29 Dose: 14 mg Non-Formulary Medication (Alendronate) 70 mg PO WEEKLY JESSA Ondansetron HCl (Zofran) 4 mg IVPUSH ONETIME ONE Stop: 06/07/17 12:24 Last Admin: 06/07/17 12:42 Dose: 4 mg Quetiapine Fumarate (Seroquel) 25 mg PO ONETIME ONE Stop: 06/07/17 16:01 Last Admin: 06/07/17 17:28 Dose: 25 mg - Exam General: Alert, Oriented, Cooperative, No Acute Distress HEENT: Pupils Equal, Pupils Reactive, EOMI, Mucous Membr. Moist/[place], Other ( Facial Asymmetry) Neck: Supple, Trachea Midline, No JVD Lungs: Clear to Auscultation, Normal Respiratory Effort Cardiovascular: Regular Rate, Regular Rhythm GI/Abdominal Exam: Normal Bowel Sounds, Soft, Non-Tender, No Organomegaly, No Distention, No Abnormal Bruit, No Mass (Female) Exam: Deferred Back Exam: Normal Inspection, Decreased Range of Motion Extremities: Normal Inspection, Normal Range of Motion, Non-Tender, No Pedal Edema, Normal Capillary Refill Skin: Warm, Dry, Intact Neurological: No New Focal Deficit Psy/Mental Status: Alert, Normal Affect, Normal Mood, Suicidal Ideation, Homicidal Ideation. No: Agitated, Hallucinations, Withdrawal Symptoms - Problem List Review Problem List Initiated/Reviewed/Updated: Yes - My Orders Last 24 Hours: My Active Orders 06/08/17 10:45 Patient Status [ADT] Routine 06/08/17 18:14 Loperamide [Imodium] 2 mg PO ASDIRECTED PRN 06/08/17 21:00 Latanoprost [Xalatan 0.005% Ophth Soln] 0 ml EYEBOTH BEDTIME Thiamine [Vitamin B-1] 100 mg PO BEDTIME 06/09/17 05:45 VIT D 1,25 DIHYDROXYY [REF] Routine 06/09/17 09:00 Potassium Chloride [Klor-Con M20] 40 meq PO Q4H - Plan Plan:: Assessment: Acute: Chronic ETOH Abuse, CIWA is 0-1 - Drinks 1/2 a fifth of whiskey a day - Her drinking got worse after she lost her to cancer about 3.5 years ago and further aggravated by recent deaths of her 2 brothers: Last Oct and November of this year - Risk factor: Depression untreated - Psych consulted: she was started on prozac - SA consult but was cancelled Chronic Depression, not suicidal - Does not sleep well at night - Lost of interest and just wants to stay home a lot - Got worse when she lost her and aggravated recent lost of her 2 siblings - She was never suicidal or homocidal - Psych consulted: recommended Prozac 20 mg po daily and AA/Pastoral Care Mild Hypokalemia - 2/2 inadequate intake - K 3.3 - Pharmacy to replete and monitor Tobacco Dependence - Smokes 6 cigarettes a day - Nicotine patch daily - Counseled on Smoking Cessation Generalized Weakness, Improved - Unsteady gait/Wobbly - PT/OT evaluation - TFT: TSH normal and FT4 is slightly elevated-not need to treat - Vit D level pending Resolved: S/p ETOH Intoxication with Mild Withdrawal Symptoms - JESE level 0.03 - Presented to [facility] symptomatic and was referred to ED for Detox - CIWA protocol: CIWA score on presentation to ED was mild - Ativan/Librium/Clonidine/Topamax - Hydralzine and IVP BB for HR/BP control - Ativan for Abortive Seizure and Withdrawal Symptoms S/p Hypomagnesemia S/p Diarrhea - Watery x 3 - C. Diff test negative - PRN Imodium and Non-greasy meal Chronic: HTN HLD Osteoporosis Glaucoma [place] Palsy Depression Plan: Patient remains clinically stable. She did much better with PT/OT this time Continue current treatment Routine AM Labs SW/CM d/c planning Code Status: 1 Possible d/c in am
[2017-06-09] MEDS: Latanoprost 0.005% Ophth Soln 2.5 ML Bottle EYEBOTH SCH (20:50)
[2017-06-09] MEDS: Thiamine 100 MG Tab PO SCH (20:50)
--- NOTE | 2017-06-09 22:19 | CONS ---
CONSULTING PHYSICIAN: Jakob Galloway MD DATE OF CONSULTATION: 06/09/2017 This is a 60-minute inpatient clinical event. IDENTIFICATION: The patient is a 66-year-old female, who is admitted to the inpatient MICU at [facility] in [place], [place] on 06/07/2017. She is seen for psychiatric evaluation. CHIEF COMPLAINT: "I have a serious problem drinking." HISTORY OF PRESENT ILLNESS: The patient is a 66-year-old female, who reports that she has been drinking a half pint of liquor a day. She states she is frustrated with this habit and notes "there is no excuse for it." She states that she has been very depressed and very sad. She notes that she has been increasingly hopeless and not able to sleep and she is always having racing thoughts and ruminations. She also endorses lack of appetite, lack of interest, lack of energy, and increased crying episodes. She denies any mood swings. She denies any anxiety. She states her last drink was 2 days ago and she wants to stop drinking. When asked why she has been drinking so heavily, she states that even though there is no excuse for her drinking, it has been very hard for her since her in 2013 and then she has lost 2 brothers this year as they both too. The patient denies any prior history of depression, but she does state that she is pretty depressed now over her losses and with her drinking habit. She denies that she is suicidal or homicidal. She denies any psychotic, delusional, or paranoid symptoms. She simply wants to stop drinking and feel better. MEDICATIONS: At the time of presentation, simvastatin. ALLERGIES: No known drug allergies. PAST MEDICAL HISTORY: High cholesterol. REVIEW OF SYSTEMS: Aside from endocrine, all other major organ systems are negative at this point in time for acute difficulties or complications. FAMILY, PSYCHIATRIC, AND CD HISTORY: The patient reports her father and paternal uncles had a history of alcoholism. PAST PSYCHIATRIC AND CD HISTORY: The patient denies any previous psychiatric hospitalizations or chemical dependency treatments. Denies any previous suicide attempts or self-injurious behaviors. Denies any eating disorder history. She is a 1/3rd-pack per day smoker. Over the past 2 years, she states that she has been drinking so heavily. Her longest period of sobriety has only been about 3 days. Her primary care provider is Dr. Leoncio calvert at [facility]. SOCIAL HISTORY: The patient was born and raised in [place], [place]. She has been twice. First marriage was for 12 years. Second marriage was for 12 years. She had 2 children from the first marriage. 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 She lives in [place], [place] with her son. She denies any prior service or any current legal difficulties. She is raised [employer]. She enjoys reading and watching movies. MENTAL STATUS EXAM: The patient is a 66-year-old white female, in no apparent distress. Speech is of regular rate and rhythm. The patient is cognitively oriented. Psychomotor activities within normal limits. There is no abnormal motor movements or tics observed. Gait and station are not observed. This patient is bedbound for the entirety of the inpatient consult. Mood is depressed. Affect is consistent with stated mood, restricted and tearful at times throughout the course of the interview, but cooperative nonetheless. There is no behavioral or stated evidence of acute suicidal or homicidal ideation or acute psychotic, delusional, or paranoid symptoms. Thought processes are significant for racing thoughts and ruminations. There were no manic symptoms or loose associations evident. Judgment and insight appear unimpaired at this point in time. Motivation for help is good. VITAL SIGNS: 134/94, 103, 18, 97.4 degrees. CIWA score was 6 on admission. IMPRESSION: [place] I: 1. Alcohol dependence, F10.20. 2. Major depressive disorder, F32.3. 3. Rule out PTSD. [place] II: None. [place] III: 1. Signs and symptoms of alcohol withdrawal. 2. History of high cholesterol. [place] IV: Severe. [place] V: 50 to 55. PLAN: 1. Spiritual guidance. 2. Sobriety. 3. AA rep to visit the patient. 4. Recommend beginning trial of Prozac 20 mg q.a.m. to help with symptoms of depression. 5. Ativan per CIWA protocol. 6. Librium 25 t.i.d. 7. May begin Seroquel 25 mg at bedtime p.r.n. acute anxiety, insomnia, racing thoughts, ruminations, and psychosis. 8. Begin Topamax 25 mg b.i.d. for seizure prophylaxis. 9. Thiamine supplementation. 10.Folic acid supplementation. 11.Other medications as dosed and prescribed by the patient's primary medical treatment team. 12.We will continue follow up with the patient on as needed basis while the patient remains on the inpatient MICU. 13.We will follow up with the patient sooner if any complications in the interim. 14.Recommend the patient follow up with outpatient psychiatry when she is medically stabilized and discharged back to the community to review her newly initiated psychiatric medication regimen and assess its efficacy. 15.Crisis plan is in place. FREDA /[id number]
[2017-06-10 08:07] VITALS: BP 115/77
[2017-06-10] MEDS: Remove Patch **NICOTINE TRDERM SCH (08:08)
[2017-06-10] MEDS: Nicotine 14 MG/24 Hr Patch TRDERM SCH (08:09)
[2017-06-10] MEDS: Folic Acid 1 MG Tab PO SCH (08:09)
[2017-06-10] MEDS: Multivitamins,Therapeutic Tab PO SCH (08:10)
[2017-06-10] MEDS: Ezetimibe 10 MG Tab PO SCH (08:10)
[2017-06-10] MEDS: Simvastatin 10 MG Tab PO SCH (08:10)
[2017-06-10] MEDS: QUEtiapine 25 MG Tab PO SCH (08:10)
[2017-06-10] MEDS: Famotidine 20 MG Tab PO SCH (08:10)
[2017-06-10] MEDS: FLUoxetine 20 MG Cap PO SCH (08:10)
[2017-06-10] MEDS: Biotin/Folic Acid/Vitamin C/Vitamin B Complex Tab PO SCH (08:11)
[2017-06-10] MEDS: Sodium Chloride 0.9% 10 ML Syringe FLUSH PRN (08:14)
--- NOTE | 2017-06-10 09:15 | PCM.DCSUM1 ---
Discharge Summary - Hospital Course Brief History: This is a 66 yo elderly white female with past medical hx/o hypertension, hyperlipidemia, henderson's palsy, nicotine dependence, osteoporosis, and glaucoma who presents to the emergency department for alcohol detoxification and was found to have a blood alcohol level of 0.03. - Discharge Data Discharge Date: 06/10/17 Discharge Disposition: Home, Self-Care 01 Condition: Good - Discharge Diagnosis/Problem(s) (1) Depression SNOMED Code(s): 27412795 ICD Code: F32.9 - MAJOR DEPRESSIVE DISORDER, SINGLE EPISODE, UNSPECIFIED Status: Acute Qualifiers: Depression Type: major depressive disorder Major depression recurrence: recurrent (2) Alcohol withdrawal syndrome SNOMED Code(s): 187787039 ICD Code: F10.239 - ALCOHOL DEPENDENCE WITH WITHDRAWAL, UNSPECIFIED Status : Resolved Qualifiers: Complication of substance-induced condition: uncomplicated Qualified Code(s ): F10.230 - Alcohol dependence with withdrawal, uncomplicated (3) Tobacco dependence SNOMED Code(s): 90193738 ICD Code: F17.200 - NICOTINE DEPENDENCE, UNSPECIFIED, UNCOMPLICATED Status : Chronic (4) Alcohol abuse SNOMED Code(s): 97719016 ICD Code: F10.10 - ALCOHOL ABUSE, UNCOMPLICATED Status: Chronic - Patient Summary/Data Operative Procedure(s) Performed: None Complications: None Consults: Consultations 06/07/17 14:56 Consult to Case Management [CONS] Routine Consult to Contact Manager [CONS] Routine Consult to Spiritual Care [CONS] Routine OT Evaluation and Treatment [CONS] Routine PT Evaluation and Treatment [CONS] Routine 06/07/17 15:04 Consult to Physician [CONS] Routine Recommended Follow-up Testing/Procedures: Follow up Outpatient Psych and [facility] Hospital Course: The patient was primarily admitted for medical management of alcohol intoxication with mild withdrawal symptoms. Patient was provided supportive care and she was put on CIWA protocol to resolve her symptoms. Slowly the patient improved on this regimen. Psych and SA were both consulted for further help. Her hospital course was uncomplicated. The rest of her chronic medical illness remained stable during this admission. Patient is now ready for discharge. She will be going home with prozac to take it daily along with the rest of her home maintenance medications. She will be following up with [facility] for chemical dependency counseling. Patient was advised to call 911 and seek immediate care or go to the nearest medical facility should she experience mental health crisis. Patient expressed understanding and in agreement with the plans as discussed above. All questions were answered. - Patient Instructions Diet: Usual Diet as Tolerated Activity: As Tolerated Driving: May Drive Today Showering/Bathing: May Shower Notify Provider of: Fever, Increased Pain, Nausea and/or Vomiting Other/Special Instructions: - Please take all medications as directed. - Keep AA session and Outpatient Chemical Rehab appointments as scheduled. - Should you experience mental health crisis, call 911 or go to the nearest medical facility and seek immediate care - Discharge Plan Prescriptions/Med Rec: FLUoxetine [PROzac] 20 mg PO DAILY #30 cap Nicotine [Nicotine Patch] 1 patch TD DAILY #30 patch.[id number] Home Medications: Home Meds Simvastatin [Zocor] 10 mg PO DAILY 03/24/16 [History] Alendronate [Fosamax] 70 mg PO WEEKLY 06/07/17 [History] Ezetimibe [Zetia] 10 mg PO DAILY 06/07/17 [History] Latanoprost 1 drop EYEBOTH BEDTIME 06/07/17 [History] FLUoxetine [PROzac] 20 mg PO DAILY #30 cap 06/10/17 [Rx] Nicotine [Nicotine Patch] 1 patch TD DAILY #30 patch.[id number] 06/10/17 [Rx] Patient Handouts: Smoking Cessation, Tips for Success, [id number], Alcohol Use Disorder, Alcohol Intoxication, [id number], Finding Treatment for Addiction, Alcohol Withdrawal, [id number] Referrals: Yun Fang MD [Primary Care Provider] - Free,Clara Martinez MD [Ordering Only Provider] - 06/13/17 12:15 pm (Referral to psychiatrist for depression. Appt will be about 1 hour and 45 minutes via telemedicine. Go to the [facility] on the [facility] at [facility] (back side of [facility] across the [address] from the [facility]). [address] Bring insurance cards.) - Discharge Summary/Plan Comment DC Time >30 min.: Yes (45 mins) Discharge Summary/Plan Comment: Discharge to Home - General Info Date of Service: 06/10/17 Admission Dx/Problem (Free Text: ETOH Withdrawal Subjective Update: Follow Up Functional Status: Reports: Pain Controlled, Tolerating Diet, Ambulating, Urinating. Denies: New Symptoms - Review of Systems General: Denies: Fever, Weakness, Fatigue, Malaise HEENT: Reports: No Symptoms Pulmonary: Denies: Shortness of Breath, Pleuritic Chest Pain Cardiovascular: Denies: Chest Pain, Palpitations, Dyspnea on Exertion Gastrointestinal: Denies: Abdominal Pain, Nausea, Vomiting Genitourinary: Reports: No Symptoms Musculoskeletal: Reports: No Symptoms Skin: Denies: Rash Neurological: Reports: Gait Disturbance. Denies: Confusion, Difficulty Walking , Weakness Psychiatric: Denies: Depression, Anxiety, Agitation, Hallucinations Systems Review Comment: No overnight or acute issues. She is essentially the same. She has no new complaints. - Patient Data Vitals - Most Recent: Last Vital Signs Temp 36.4 C 06/10/17 08:06 Pulse 80 06/10/17 08:06 Resp 16 06/10/17 08:06 BP 115/77 06/10/17 08:06 Pulse Ox 99 06/10/17 08:06 Weight - Most Recent: 57.198 kg I&O - Last 24 hours: Intake & Output 06/09/17 06/10/17 06/10/17 22:59 06:59 14:59 Intake Total 800 600 Output Total 800 Balance 0 600 Med Orders - Current: Current Medications Acetaminophen (Tylenol) 650 mg PO Q4H PRN PRN Reason: Pain (Mild 1-3)/fever Hydrocodone Bitart/Acetaminophen ([place] 325-5 Mg) 1 tab PO Q4H PRN PRN Reason: Pain (moderate 4-6) Albuterol/Ipratropium (Duoneb 3.0-0.5 Mg/3 Ml) 3 ml NEB Q4H PRN PRN Reason: Shortness Of Breath/wheezing Bisacodyl (Dulcolax) 5 mg PO DAILY PRN PRN Reason: Constipation Chlordiazepoxide HCl (Librium) 25 mg PO TID PRN PRN Reason: Withdrawal Symptoms Last Admin: 06/07/17 20:34 Dose: 25 mg Clonidine HCl (Catapres) 0.1 mg PO Q8H PRN PRN Reason: Withdrawal Symptoms Last Admin: 06/07/17 20:34 Dose: 0.1 mg Docusate Sodium (Colace) 100 mg PO BID PRN PRN Reason: Constipation Ezetimibe (Zetia) 10 mg PO DAILY [facility] Last Admin: 06/10/17 08:10 Dose: 10 mg Famotidine (Pepcid) 20 mg PO DAILY [facility] Last Admin: 06/10/17 08:10 Dose: 20 mg Fluoxetine HCl (Prozac) 20 mg PO DAILY [facility] Last Admin: 06/10/17 08:10 Dose: 20 mg Folic Acid (Folic Acid) 1 mg PO DAILY [facility] Last Admin: 06/10/17 08:09 Dose: 1 mg Hydralazine HCl (Apresoline) 20 mg IVPUSH Q4H PRN PRN Reason: Hypertension Hydromorphone HCl (Dilaudid) 0.25 mg IVPUSH Q2H PRN PRN Reason: Pain (severe 7-10) Promethazine HCl 12.5 mg/ (Sodium Chloride) 50.5 mls @ 100 mls/hr IV Q6H PRN PRN Reason: Nausea/Vomiting Latanoprost (Xalatan 0.005% Ophth Soln) 0 ml EYEBOTH BEDTIME [facility] Last Admin: 06/09/17 20:50 Dose: 1 drop Loperamide HCl (Imodium) 2 mg PO ASDIRECTED PRN PRN Reason: Diarrhea Lorazepam (Ativan) 2 mg IVPUSH Q4H PRN PRN Reason: Seizures Lorazepam (Ativan) 0 mg IVPUSH ASDIRECTED PRN; Protocol PRN Reason: Withdrawal Symptoms Last Admin: 06/07/17 20:34 Dose: 1 mg Magnesium Sulfate (Pharmacy To Dose - Magnesium Replacement) 1 dose .XX ASDIRECTED [facility] Metoprolol Tartrate (Lopressor) 5 mg IVPUSH Q4H PRN PRN Reason: Tachycardia Miscellaneous Information (Remove Patch) 1 ea TRDERM DAILY [facility] Last Admin: 06/10/17 08:08 Dose: 1 ea Multivitamins (Thera) 1 each PO DAILY [facility] Last Admin: 06/10/17 08:10 Dose: 1 each Nicotine (Habitrol) 14 mg TRDERM DAILY [facility] Last Admin: 06/10/17 08:09 Dose: 14 mg Ondansetron HCl (Zofran) 4 mg IV Q6H PRN PRN Reason: Nausea/Vomiting Polyethylene Glycol (Miralax) 17 gm PO DAILY PRN PRN Reason: Constipation Potassium Chloride (Pharmacy To Dose - Potassium Replacement) 1 dose .XX ASDIRECTED [facility] Quetiapine Fumarate (Seroquel) 25 mg PO BID [facility] Last Admin: 06/10/17 08:10 Dose: 25 mg Senna/Docusate Sodium (Senna Plus) 1 tab PO BID PRN PRN Reason: Constipation Simvastatin (Zocor) 10 mg PO DAILY [facility] Last Admin: 06/10/17 08:10 Dose: 10 mg Sodium Chloride (Saline Flush) 10 ml FLUSH ASDIRECTED PRN PRN Reason: Keep Vein Open Last Admin: 06/10/17 08:14 Dose: 10 ml Thiamine HCl (Vitamin B-1) 100 mg PO BEDTIME [facility] Last Admin: 06/09/17 20:50 Dose: 100 mg Vitamin B Complex/Vit C/Folic Acid (Nephrocaps) 1 tab PO DAILY [facility] Last Admin: 06/10/17 08:11 Dose: 1 tab Discontinued Medications Chlordiazepoxide HCl (Librium) 50 mg PO ONETIME ONE Stop: 06/07/17 15:02 Last Admin: 06/07/17 18:01 Dose: Not Given Chlordiazepoxide HCl (Librium) 50 mg PO ONETIME ONE Stop: 06/07/17 18:01 Last Admin: 06/07/17 17:58 Dose: 50 mg Cyanocobalamin (Vitamin B12) 1,000 mcg PO DAILY [facility] Last Admin: 06/08/17 08:13 Dose: 1,000 mcg Cyanocobalamin (Vitamin B12) 1,000 mcg SUBCUT ONETIME ONE Stop: 06/07/17 16:01 Last Admin: 06/07/17 17:28 Dose: 1,000 mcg Famotidine (Pepcid) 20 mg IVPUSH ONETIME ONE Stop: 06/07/17 16:01 Last Admin: 06/07/17 17:28 Dose: 20 mg Folic Acid (Folic Acid) 1 mg PO ONETIME ONE Stop: 06/07/17 14:58 Last Admin: 06/07/17 18:01 Dose: Not Given Folic Acid (Folic Acid) 1 mg PO ONETIME ONE Stop: 06/07/17 18:01 Last Admin: 06/07/17 17:58 Dose: 1 mg Sodium Chloride (Normal Saline) 1,000 mls @ 1,000 mls/hr IV .BOLUS [facility] Last Admin: 06/07/17 12:41 Dose: 1,000 mls/hr Sodium Chloride (Normal Saline) 1,000 mls @ 100 mls/hr IV ASDIRECTED [facility] Last Admin: 06/08/17 23:41 Dose: 100 mls/hr Thiamine HCl 200 mg/ Sodium (Chloride) 102 mls @ 50 mls/hr IV ONETIME ONE Stop: 06/07/17 18:32 Last Admin: 06/07/17 17:28 Dose: 50 mls/hr Potassium Chloride 10 meq/ (Premix) 100 mls @ 100 mls/hr IV Q1H JESSA Stop: 06/08/17 13:29 Last Admin: 06/08/17 14:41 Dose: 100 mls/hr Magnesium Sulfate 2 gm/ Premix 50 mls @ 25 mls/hr IV Q2H [facility] Stop: 06/08/17 13:44 Last Admin: 06/08/17 14:46 Dose: 25 mls/hr Lorazepam (Ativan) 0.25 mg IVPUSH ONETIME ONE Stop: 06/07/17 14:33 Last Admin: 06/07/17 14:55 Dose: 0.25 mg Lorazepam (Ativan) 0 mg IVPUSH Q4H PRN; Protocol PRN Reason: Withdrawal Symptoms Last Admin: 06/07/17 18:00 Dose: 1 mg Metoclopramide HCl (Reglan) 5 mg IVPUSH ONETIME ONE Stop: 06/07/17 14:32 Last Admin: 06/07/17 14:53 Dose: 5 mg Nicotine (Habitrol) 14 mg TRDERM ONETIME ONE Stop: 06/07/17 16:24 Last Admin: 06/07/17 17:29 Dose: 14 mg Non-Formulary Medication (Alendronate) 70 mg PO WEEKLY [facility] Ondansetron HCl (Zofran) 4 mg IVPUSH ONETIME ONE Stop: 06/07/17 12:24 Last Admin: 06/07/17 12:42 Dose: 4 mg Potassium Chloride (Klor-Con M20) 40 meq PO Q4H [facility] Stop: 06/09/17 13:01 Last Admin: 06/09/17 13:27 Dose: 40 meq Quetiapine Fumarate (Seroquel) 25 mg PO ONETIME ONE Stop: 06/07/17 16:01 Last Admin: 06/07/17 17:28 Dose: 25 mg - Exam General: Reports: Alert, Oriented, Cooperative, No Acute Distress HEENT: Reports: Pupils Equal, Pupils Reactive, EOMI, Mucous Membr. Moist/[place], Other (Facial Asymmetry) Neck: Reports: Supple, Trachea Midline, No JVD, No Thyromegaly Lungs: Reports: Clear to Auscultation, Normal Respiratory Effort Cardiovascular: Reports: Regular Rate, Regular Rhythm GI/Abdominal Exam: Normal Bowel Sounds, Soft, Non-Tender, No Organomegaly, No Distention, No Abnormal Bruit, No Mass (Female) Exam: Deferred Rectal (Female) Exam: Deferred Back Exam: Reports: Normal Inspection, Decreased Range of Motion Extremities: Normal Inspection, Normal Range of Motion, Non-Tender, No Pedal Edema, Normal Capillary Refill Skin: Reports: Warm, Dry, Intact Neurological: Reports: No New Focal Deficit. Denies: Normal Gait Psy/Mental Status: Reports: Alert, Normal Affect, Normal Mood *Q Meaningful Use (DIS) - VTE *Q VTE Criteria *Q: - Stroke *Q Stroke Criteria *Q: - AMI *Q AMI Criteria *Q:
== END 2017-06-10 10:35 | disposition home or self-care (01) | DRG 897 ==
LOC: JD.ED 11:31 → UNDOADMIN 14:35 → JD.ICU 14:35 → UNDODISIN 06-10 10:35
PROVIDERS: ADMIT Internal Medicine; ATTEND Internal Medicine
PROC: HZ2ZZZZ Detoxification Services for Substance Abuse Treatment (ICD-10-PCS; principal; 2017-06-07)
DX: F10.230 Alcohol dependence with withdrawal, uncomplicated (principal); F10.229 Alcohol dependence with intoxication, unspecified; F10.220 Alcohol dependence with intoxication, uncomplicated; E78.00 Pure hypercholesterolemia, unspecified; F10.239 Alcohol dependence with withdrawal, unspecified; Y90.0 Blood alcohol level of less than 20 mg/100 ml; E87.6 Hypokalemia; E83.42 Hypomagnesemia; R19.7 Diarrhea, unspecified; R53.1 Weakness; F32.9 Major depressive disorder, single episode, unspecified; F17.210 Nicotine dependence, cigarettes, uncomplicated; I10 Essential (primary) hypertension; E78.5 Hyperlipidemia, unspecified; M81.0 Age-related osteoporosis without current pathological fracture; H40.9 Unspecified glaucoma; Z79.899 Other long term (current) drug therapy
CPT/HCPCS: 36415; 80053; 80306; 82607; 83690; 85025; 96361; 96374; 99285; G0480; J2405; J7040; J7050; 80048; 82652; 83735; 84439; 84443; 87493; 96375; 97110-GO; 97112-GP; 97116-GP; 97162-GP; 97167-GO; 97530-GO; 97530-GP; 97535-GO; 99284; A9270-GY; J2060; J2765; J3411; J3420; J3475; J3480; J7030

== ENCOUNTER 2020-09-25 19:25 | Emergency (ER) | payer MEDICARE, OTHER ==
--- NOTE | 2020-09-25 20:08 | EDM.PDOC ---
ED HPI GENERAL MEDICAL PROBLEM - General Chief Complaint: Neuro Symptoms/Deficits Stated Complaint: [facility] Time Seen by Provider: 09/25/20 19:58 - History of Present Illness INITIAL COMMENTS - FREE TEXT/NARRATIVE: 69-year-old female presents the emergency room brought in by EMS with questionable stroke symptoms. That patient was last known normal around 515. 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 Shortly after the patient was observed to be normal the patient son went back down and she was confused and was having more speech difficulty and seem to have some right-sided weakness. Shortly before this the patient took a lorazepam and it is unclear whether or not the patient has been drinking. The patient according to the patient's son does drink on a regular basis. Upon arrival to the emergency room patient's evaluation is somewhat difficult is hard to assess if she has been drinking by smell because well wearing N95's. Her exam is really inconsistent sometimes she moves her right side very well other times she will move it hardly at all the patient seems to have difficulty following directions. She does not know where she is at. - Related Data Allergies Allergy/AdvReac Type Severity Reaction Status Date / Time No Known Allergies Allergy Verified 06/03/18 10:57 Home Meds: Home Meds Alendronate [Fosamax] 70 mg PO WEEKLY 06/07/17 [History] Ezetimibe [Zetia] 10 mg PO DAILY 06/07/17 [History] FLUoxetine [PROzac] 20 mg PO DAILY #30 cap 06/10/17 [Rx] Ascorbic Acid [Vitamin C] 250 mg PO DAILY 06/03/18 [History] Calcium Carb/D3/Magnesium/Zinc [Ozzy Mag Zinc + D3] 1 tab PO DAILY 06/03/18 [History] Cholecalciferol (Vitamin D3) [Vitamin D3] 5,000 unit PO DAILY 06/03/18 [History] Cyanocobalamin (Vitamin B-12) [Vitamin B-12] 1,000 mcg PO DAILY 06/03/18 [History] Folic Acid 1 mg PO DAILY 06/03/18 [History] Furosemide 40 mg PO DAILY 06/03/18 [History] Glucosamine/D3/Boswellia Ruthie [Osteo Bi-Flex Caplet] 1 tab PO DAILY 06/03/18 [History] LORazepam [Ativan] 0.5 mg PO BID PRN 06/03/18 [History] Latanoprost [Xalatan 0.005% Ophth Soln] 1 drop EYEBOTH BEDTIME 06/03/18 [History] Multivitamin [Poly-Vitamin] 1 tab PO DAILY 06/03/18 [History] Potassium Chloride 10 meq PO DAILY 06/03/18 [History] atorvaSTATin Calcium [Atorvastatin Calcium] 20 mg PO DAILY 06/03/18 [History] Aspirin [Ecotrin EC] 325 mg PO BID #84 tab.ec 06/05/18 [Rx] Docusate Sodium [Colace] 100 mg PO BID cap 06/05/18 [Rx] Famotidine [Pepcid] 20 mg PO Q12H tablet 06/05/18 [Rx] Magnesium Hydroxide [Milk of Magnesia] 30 ml PO BID PRN cup 06/05/18 [Rx] Sennosides [Senna] 8.6 mg PO BID PRN tablet 06/05/18 [Rx] bisacodyL [Dulcolax] 5 mg PO DAILY PRN tablet 06/05/18 [Rx] Acetaminophen/HYDROcodone [Hillman 325-5 MG] 1 tab PO Q6H PRN #60 tablet 06/07/18 [Rx] Past Medical History HEENT History: Reports: Cataract, Impaired Vision Other HEENT History: wears glasses Cardiovascular History: Reports: High Cholesterol, Hypertension Respiratory History: Reports: None Gastrointestinal History: Reports: Colon Polyp, Hemorrhoids, Other (See Below) Other Gastrointestinal History: elevated LFTS Genitourinary History: Reports: None [employer] History: Reports: Musculoskeletal History: Reports: Arthritis, Fracture, Osteoporosis, Other (See Below) Other Musculoskeletal History: left knee pain, broken wrist x 2 Neurological History: Reports: Other (See Below) Other Neuro History: solo's palsy Psychiatric History: Reports: Anxiety, Depression Endocrine/Metabolic History: Reports: Vitamin D Deficiency, Other (See Below) Other Endocrine/Metabolic History: hypoglycemia Hematologic History: Reports: Anemia Immunologic History: Reports: None Oncologic (Cancer) History: Reports: None Dermatologic History: Reports: None - Infectious Disease History Infectious Disease History: Reports: Chicken Pox, Influenza - Past Surgical History HEENT Surgical History: Reports: Cataract Surgery GI Surgical History: Reports: Colonoscopy Musculoskeletal Surgical History: Reports: Arthroscopic Procedure Other Musculoskeletal Surgeries/Procedures:: LTKA on 06/05/18 Social & Family History - Family History Family Medical History: No Pertinent Family History Cardiac: Reports: RI Neurological: Reports: CVA Endocrine/Metabolic: Reports: Diabetes, type II - Tobacco Use Tobacco Use Status *Q: Never Tobacco User - Caffeine Use Caffeine Use: Reports: None - Recreational Drug Use Recreational Drug Use: No ED ROS GENERAL - Review of Systems Review Of Systems: Unable To Obtain Reason Not Obtained: Unable to obtain in the patient's current state ED EXAM, NEURO - Physical Exam Exam: See Below Exam Limited By: Other (The patient at times follows directions at other times does not her exam is really inconsistent at times to lift her legs cooperate with her arms at other times she will not) General Appearance: Alert, No Apparent Distress Eye Exam: Bilateral Eye: Nystagmus, PERRL Ears: Normal External Exam, Normal Canal, Hearing Grossly Normal, Normal TMs Nose: Normal Inspection, Normal Mucosa, No Blood Throat/Mouth: Other (Facial droop consistent with Solo's palsy she is not moving her right side of her face) Head Exam: Atraumatic, Normocephalic Neck: Normal Inspection, Supple, Non-Tender, Full Range of Motion. No: Lymphadenopathy (L), Lymphadenopathy (R) Respiratory/Chest: No Respiratory Distress, Lungs Clear, Respiratory Distress Cardiovascular: Regular Rate, Rhythm, No Edema, No Murmur GI/Abdominal: Normal Bowel Sounds, Soft, Non-Tender Neurological: Alert, Other (Muscle testing is really inconsistent at times she does really well though the time she does not sometimes she is weak on the right sometimes she is weak on the left) Back Exam: Normal Inspection. No: CVA Tenderness (L), CVA Tenderness (R) Extremities: Normal Inspection, Normal Range of Motion, Non-Tender Psychiatric: Normal Affect, Normal Mood Skin Exam: Warm, Dry, Intact, Normal Color, No Rash Course - Vital Signs Last Recorded V/S: Last Vital Signs Temp 36.6 C 09/25/20 19:28 Pulse 87 09/25/20 20:59 Resp 16 09/25/20 20:59 BP 94/73 09/25/20 20:59 Pulse Ox 99 09/25/20 19:28 - Orders/Labs/Meds Orders: Active Orders 24 hr Category Date Time Status Chest 1V Frontal [CR] Stat Exams 09/25/20 19:36 Taken Head wo Cont [CT] Stat Exams 09/25/20 19:36 Taken Labs: Laboratory Tests 09/25/20 09/25/20 09/25/20 Range/Units 19:32 19:39 19:39 WBC 6.15 (3.98-10.04) K/mm3 RBC 3.72 L (3.98-5.22) M/mm3 Hgb 11.8 (11.2-15.7) gm/dl Hct 37.5 (34.1-44.9) % MCV 100.8 H D (79.4-94.8) fl MCH 31.7 (25.6-32.2) pg MCHC 31.5 L (32.2-35.5) g/dl RDW Std Deviation 51.3 H (36.4-46.3) fL Plt Count 351 D (182-369) K/mm3 MPV 8.5 L (9.4-12.3) fl Neut % (Auto) 48.0 (34.0-71.1) % Lymph % (Auto) 37.7 (19.3-51.7) % [place] % (Auto) 11.1 (4.7-12.5) % Eos % (Auto) 1.0 (0.7-5.8) Baso % (Auto) 1.1 (0.1-1.2) % Neut # (Auto) 2.95 (1.56-6.13) K/mm3 Lymph # (Auto) 2.32 (1.18-3.74) K/mm3 [place] # (Auto) 0.68 H (0.24-0.36) K/mm3 Eos # (Auto) 0.06 (0.04-0.36) K/mm3 Baso # (Auto) 0.07 (0.01-0.08) K/mm3 PT 10.4 (9.7-12.0) SECONDS INR 0.97 APTT 32.6 H (21.7-31.4) SECONDS Sodium (136-145) mEq/L Potassium (3.5-5.1) mEq/L Chloride (98-107) mEq/L Carbon Dioxide (21-32) mEq/L Anion Gap (5-15) BUN (7-18) mg/dL Creatinine (0.55-1.02) mg/dL Est Cr Clr Drug Dosing Estimated GFR (MDRD) (>60) mL/min BUN/Creatinine Ratio (14-18) Glucose (83-115) mg/dL POC Glucose 96 (83-110) mg/dL Calcium (8.5-10.1) mg/dL Total Bilirubin (0.2-1.0) mg/dL AST (15-37) U/L ALT (14-59) U/L Alkaline Phosphatase (46-116) U/L Troponin I (0.00-0.056) ng/mL Total Protein (6.4-8.2) g/dl Albumin (3.4-5.0) g/dl Globulin gm/dL Albumin/Globulin Ratio (1-2) Urine Color (Yellow) Urine Appearance (Clear) Urine pH (5.0-8.0) Ur Specific [place] (1.005-1.030) Urine Protein (Negative) Urine Glucose (UA) (Negative) Urine Ketones (Negative) Urine Occult Blood (Negative) Urine Nitrite (Negative) Urine Bilirubin (Negative) Urine Urobilinogen (0.2-1.0) Ur Leukocyte Esterase (Negative) Urine Opiates Screen (KXQTCY=979) Ur Buprenorphine Scrn (CUTOFF=10) Ur Oxycodone Screen (QLO9GK=707) Urine Methadone Screen (KFSWZL=941) Ur Propoxyphene Screen (TXRFAT=378) Ur Barbiturates Screen (FBRYMK=591) Ur Tricyclics Screen (ADGVJJ=292) Ur Phencyclidine Scrn (CUTOFF=25) Ur Amphetamine Screen (UXQNLR=346) U Methamphetamines Scrn (DMTUJQ=082) U Benzodiazepines Scrn (YEBYDV=782) U Cocaine Metab Screen (EGLEPQ=019) U Marijuana (THC) Screen (CUTOFF=50) Ethyl Alcohol (0.00) gm% SARS-CoV-2 RNA (TERRY) (NEGATIVE) 09/25/20 09/25/20 09/25/20 Range/Units 19:39 19:39 19:52 WBC (3.98-10.04) K/mm3 RBC (3.98-5.22) M/mm3 Hgb (11.2-15.7) gm/dl Hct (34.1-44.9) % MCV (79.4-94.8) fl MCH (25.6-32.2) pg MCHC (32.2-35.5) g/dl RDW Std Deviation (36.4-46.3) fL Plt Count (182-369) K/mm3 MPV (9.4-12.3) fl Neut % (Auto) (34.0-71.1) % Lymph % (Auto) (19.3-51.7) % [place] % (Auto) (4.7-12.5) % Eos % (Auto) (0.7-5.8) Baso % (Auto) (0.1-1.2) % Neut # (Auto) (1.56-6.13) K/mm3 Lymph # (Auto) (1.18-3.74) K/mm3 [place] # (Auto) (0.24-0.36) K/mm3 Eos # (Auto) (0.04-0.36) K/mm3 Baso # (Auto) (0.01-0.08) K/mm3 PT (9.7-12.0) SECONDS INR APTT (21.7-31.4) SECONDS Sodium 140 (136-145) mEq/L Potassium 3.6 (3.5-5.1) mEq/L Chloride 102 (98-107) mEq/L Carbon Dioxide 29 (21-32) mEq/L Anion Gap 12.6 (5-15) BUN 18 (7-18) mg/dL Creatinine 0.6 (0.55-1.02) mg/dL Est Cr Clr Drug Dosing TNP Estimated GFR (MDRD) > 60 (>60) mL/min BUN/Creatinine Ratio 30.0 H (14-18) Glucose 95 (83-115) mg/dL POC Glucose (83-110) mg/dL Calcium 8.4 L (8.5-10.1) mg/dL Total Bilirubin 0.3 (0.2-1.0) mg/dL AST 20 (15-37) U/L ALT 27 (14-59) U/L Alkaline Phosphatase 67 (46-116) U/L Troponin I < 0.017 (0.00-0.056) ng/mL Total Protein 7.2 (6.4-8.2) g/dl Albumin 3.6 (3.4-5.0) g/dl Globulin 3.6 gm/dL Albumin/Globulin Ratio 1.0 (1-2) Urine Color Yellow (Yellow) Urine Appearance Clear (Clear) Urine pH 7.0 (5.0-8.0) Ur Specific [place] 1.015 (1.005-1.030) Urine Protein Negative (Negative) Urine Glucose (UA) Negative (Negative) Urine Ketones Negative (Negative) Urine Occult Blood Negative (Negative) Urine Nitrite Negative (Negative) Urine Bilirubin Negative (Negative) Urine Urobilinogen 0.2 (0.2-1.0) Ur Leukocyte Esterase Negative (Negative) Urine Opiates Screen (CYBUST=656) Ur Buprenorphine Scrn (CUTOFF=10) Ur Oxycodone Screen (CMB9AR=541) Urine Methadone Screen (LXSMON=029) Ur Propoxyphene Screen (YWCNWD=602) Ur Barbiturates Screen (BFINDS=295) Ur Tricyclics Screen (AENVJX=342) Ur Phencyclidine Scrn (CUTOFF=25) Ur Amphetamine Screen (CTLDAS=124) U Methamphetamines Scrn (EBXFDU=478) U Benzodiazepines Scrn (VHXBBN=850) U Cocaine Metab Screen (CKBBWF=300) U Marijuana (THC) Screen (CUTOFF=50) Ethyl Alcohol 0.40 (0.00) gm% SARS-CoV-2 RNA (TERRY) (NEGATIVE) 09/25/20 09/25/20 Range/Units 19:52 20:28 WBC (3.98-10.04) K/mm3 RBC (3.98-5.22) M/mm3 Hgb (11.2-15.7) gm/dl Hct (34.1-44.9) % MCV (79.4-94.8) fl MCH (25.6-32.2) pg MCHC (32.2-35.5) g/dl RDW Std Deviation (36.4-46.3) fL Plt Count (182-369) K/mm3 MPV (9.4-12.3) fl Neut % (Auto) (34.0-71.1) % Lymph % (Auto) (19.3-51.7) % [place] % (Auto) (4.7-12.5) % Eos % (Auto) (0.7-5.8) Baso % (Auto) (0.1-1.2) % Neut # (Auto) (1.56-6.13) K/mm3 Lymph # (Auto) (1.18-3.74) K/mm3 [place] # (Auto) (0.24-0.36) K/mm3 Eos # (Auto) (0.04-0.36) K/mm3 Baso # (Auto) (0.01-0.08) K/mm3 PT (9.7-12.0) SECONDS INR APTT (21.7-31.4) SECONDS Sodium (136-145) mEq/L Potassium (3.5-5.1) mEq/L Chloride (98-107) mEq/L Carbon Dioxide (21-32) mEq/L Anion Gap (5-15) BUN (7-18) mg/dL Creatinine (0.55-1.02) mg/dL Est Cr Clr Drug Dosing Estimated GFR (MDRD) (>60) mL/min BUN/Creatinine Ratio (14-18) Glucose (83-115) mg/dL POC Glucose (83-110) mg/dL Calcium (8.5-10.1) mg/dL Total Bilirubin (0.2-1.0) mg/dL AST (15-37) U/L ALT (14-59) U/L Alkaline Phosphatase (46-116) U/L Troponin I (0.00-0.056) ng/mL Total Protein (6.4-8.2) g/dl Albumin (3.4-5.0) g/dl Globulin gm/dL Albumin/Globulin Ratio (1-2) Urine Color (Yellow) Urine Appearance (Clear) Urine pH (5.0-8.0) Ur Specific [place] (1.005-1.030) Urine Protein (Negative) Urine Glucose (UA) (Negative) Urine Ketones (Negative) Urine Occult Blood (Negative) Urine Nitrite (Negative) Urine Bilirubin (Negative) Urine Urobilinogen (0.2-1.0) Ur Leukocyte Esterase (Negative) Urine Opiates Screen Negative (FDNBZS=859) Ur Buprenorphine Scrn Negative (CUTOFF=10) Ur Oxycodone Screen Negative (PRL1QZ=822) Urine Methadone Screen Negative (GNDRZB=709) Ur Propoxyphene Screen Negative (BOMSKQ=470) Ur Barbiturates Screen Negative (OKLTHJ=459) Ur Tricyclics Screen Negative (SFTVLS=918) Ur Phencyclidine Scrn Negative (CUTOFF=25) Ur Amphetamine Screen Negative (XULVDD=217) U Methamphetamines Scrn Negative (NQTRIU=275) U Benzodiazepines Scrn Negative (XVLUZB=415) U Cocaine Metab Screen Negative (TSQCIP=184) U Marijuana (THC) Screen Negative (CUTOFF=50) Ethyl Alcohol (0.00) gm% SARS-CoV-2 RNA (TERRY) Negative (NEGATIVE) Meds: Medications Discontinued Medications Generic Name Dose Route Start Last Admin Trade Name Shannen PRN Reason Stop Dose Admin Folic Acid Confirm 09/25/20 21:47 Folic Acid Administered 09/25/20 21:48 Dose 1 mg .ROUTE .STK-MED ONE Folic Acid 1 mg 09/25/20 21:56 Folic Acid PO 09/25/20 21:57 ONETIME ONE Lactated Ringer's 1,000 mls @ 999 mls/hr 09/25/20 21:26 09/25/20 21:45 Ringers, Lactated IV 09/25/20 22:26 999 mls/hr .BOLUS ONE Administration Thiamine HCl 100 mg/ Sodium 101 mls @ 202 mls/hr 09/25/20 21:26 09/25/20 21:45 Chloride IV 09/25/20 21:27 202 mls/hr ONETIME ONE Administration Lactated Ringer's Confirm 09/25/20 22:45 Ringers, Lactated Administered 09/25/20 22:46 Dose 1,000 mls @ as directed .ROUTE .STK-MED ONE - Re-Assessments/Exams Free Text/Narrative Re-Assessment/Exam: 09/25/20 20:28 Very difficult to get a reliable reproducible physical exam on this patient at times she uses her right extremities just fine at other times she does not the right leg seems to be consistently weaker than the left but she can do almost everything with it however have not ambulated the patient. Her stroke score is 8. 09/25/20 21:28 Case was discussed with Dr. Yen, stroke neurologist at [facility] who strongly discourages the use of thrombolytics in this point as her exam is inconsistent. After the case was discussed with Dr. Yen patient's blood alcohol comes back at 0.4. We will give the patient some IV fluids as her blood pressure is a little on the low side. I have updated the patient's son as to the status of the situation. 09/26/20 00:05 The patient is awake alert and oriented at this time she is ambulatory and really is insistent on going home. The patient has a slightly abnormal gait secondary to her back problems. The patient's son did watch the patient walk and says this is normal for her. At this point we will go and discharge her home to the care of her son who is sober Departure - Departure Time of Disposition: 00:05 Disposition: Home, Self-Care 01 Clinical Impression: Alcohol intoxication - Discharge Information Referrals: PCP,Unknown [Ordering Only Provider] - Forms: ED Department Discharge Additional Instructions: Return to the emergency room with any questions problems or worsening symptoms. I strongly encourage you to decrease your drinking of alcohol. As we discussed you are taking a baby aspirin a day and I encourage you to continue this. Sepsis Event Note (ED) - Evaluation Sepsis Screening Result: No Definite Risk - Focused Exam Vital Signs: Vital Signs Temp Pulse Resp BP Pulse Ox 09/25/20 20:59 87 16 94/73 09/25/20 19:28 36.6 C 82 16 102/70 99 - My Orders Last 24 Hours: My Active Orders 09/25/20 19:36 Chest 1V Frontal [CR] Stat Head wo Cont [CT] Stat - Assessment/Plan Last 24 Hours: My Active Orders 09/25/20 19:36 Chest 1V Frontal [CR] Stat Head wo Cont [CT] Stat
[2020-09-25 21:00] VITALS: BP 94/73; PULSE 87
[2020-09-25] MEDS ORDERED: Thiamine 100 MG in Sodium Chloride 0.9% 100 ML IV ONE (21:26)
[2020-09-25] MEDS ORDERED: Lactated Ringers 1,000 ML IV ONE ×2 (21:26→23:30)
[2020-09-25] MEDS ORDERED: Folic Acid 50 MG/10 ML MDV IV SCH (21:45)
[2020-09-25] MEDS ORDERED: Folic Acid 1 MG Tab ONE (21:47)
[2020-09-25] MEDS ORDERED: Folic Acid 1 MG Tab PO ONE (21:56)
[2020-09-25] MEDS ORDERED: Lactated Ringers 1,000 ML ONE (22:45)
--- NOTE | 2020-09-26 08:52 | CT ---
PROCEDURE INFORMATION: Exam: CT Head Without Contrast Exam date and time: 09/25/2020 7:41 PM Age: 69 years old Clinical indication: Other: CVA TECHNIQUE: Imaging protocol: Computed tomography of the head without contrast. Other technique: STROKE PROTOCOL was implemented. COMPARISON: No relevant prior studies available. FINDINGS: Brain: Deep white matter hypodensity compatible with chronic small vessel ischemic change. Cerebral ventricles: No ventriculomegaly. Bones/joints: Unremarkable. No acute fracture. Paranasal sinuses: Visualized sinuses are unremarkable. No fluid levels. Mastoid air cells: Visualized mastoid air cells are well aerated. Soft tissues: Unremarkable. IMPRESSION: No evidence for acute intracranial process. ASSESSMENT: ASPECTS ([place] Stroke Program Early CT Score) is 10. Thank you for allowing us to participate in the care of your patient. Dictated and Authenticated by: Jimbo Hobbs MD 09/25/2020 8:58 PM Central Time ([place] & [place]) [facility]
--- NOTE | 2020-09-26 08:54 | CR ---
Addendum created by Jimbo Hobbs MD on 09/25/2020 10:25 PM Central Time ([place] & [place]): Impression should read no acute cardiopulmonary disease. Initial Report created on 09/25/2020 9:19 PM Central Time ([place] & [place]): PROCEDURE INFORMATION: Exam: XR Chest, 1 View Exam date and time: 09/25/2020 7:48 PM Age: 69 years old Clinical indication: Other: CVA TECHNIQUE: Imaging protocol: XR of the chest Views: 1 view. COMPARISON: DX Chest 2V 06/02/2018 4:57 PM FINDINGS: Lungs: Unremarkable. No consolidation. Pleural space: Unremarkable. No pleural effusion. No pneumothorax. Heart/Mediastinum: Mild cardiomegaly. Bones/joints: Unremarkable. IMPRESSION: No acute intracranial process. Thank you for allowing us to participate in the care of your patient. Dictated and Authenticated by: Jimbo Hobbs MD 09/25/2020 9:19 PM Central Time ([place] & [place]) MTDD
[2020-09-26] MEDS ORDERED: Folic Acid 50 MG/10 ML MDV IV ONE (21:30)
== END 2020-09-26 00:15 | disposition home or self-care (01) ==
LOC: JD.ED 19:25
DX: F10.129 Alcohol abuse with intoxication, unspecified (principal); I10 Essential (primary) hypertension; E78.00 Pure hypercholesterolemia, unspecified; M19.90 Unspecified osteoarthritis, unspecified site; F41.9 Anxiety disorder, unspecified; F32.9 Major depressive disorder, single episode, unspecified; Z79.82 Long term (current) use of aspirin; Z79.899 Other long term (current) drug therapy; Z20.828 Contact with and (suspected) exposure to other viral communicable diseases
CPT/HCPCS: 36415; 70450; 71045; 80053; 80306; 80307; 81003; 82962; 84484; 85025; 85610; 85730; 96374; 99285; A9270; J3411; J7120; U0002; 99283

== ENCOUNTER 2020-10-29 17:16 | Emergency (ER) | payer MEDICARE, OTHER ==
[2020-10-29 17:32] VITALS: BP 160/85; PULSE 95
--- NOTE | 2020-10-29 17:54 | EDM.PDOC ---
ED HPI GENERAL MEDICAL PROBLEM - General Chief Complaint: Lower Extremity Injury/Pain Stated Complaint: SWELLING/NUMBNESS IN RT LEG/FOOT Time Seen by Provider: 10/29/20 17:33 Source of Information: Reports: Patient, RN Notes Reviewed History Limitations: Reports: No Limitations - History of Present Illness INITIAL COMMENTS - FREE TEXT/NARRATIVE: Patient is a 70-year-old female who presents to the ED for a right leg complaint. Patient did have lumbar surgery done by Dr. Cesar in [place] on October 21 for nehal placement. She notes since then she has been having pain and swelling in her leg. She is also complaining of some numbness that runs down the anterior portion of her leg all the way down to her right foot. She called her neurosurgeon's office and discussed the numbness with them but they said that is a normal variant for postsurgical findings. Patient is quite concerned that she might have a blood clot due to the pain and unilateral swelling. She is complaining of pain with flexion and extension of the right foot, and states is hard to walk as it makes her slightly off balance. She is not on any sort of blood thinners. Patient denies any fevers or chills, cough/shortness of breath, nausea/vomiting/diarrhea. right foot Pain Score (Numeric/FACES): 8 - Related Data Allergies Allergy/AdvReac Type Severity Reaction Status Date / Time No Known Allergies Allergy Verified 10/29/20 17:32 Home Meds: Home Meds Alendronate [Fosamax] 70 mg PO WEEKLY 06/07/17 [History] Ezetimibe [Zetia] 10 mg PO DAILY 06/07/17 [History] FLUoxetine [PROzac] 20 mg PO DAILY #30 cap 06/10/17 [Rx] Ascorbic Acid [Vitamin C] 250 mg PO DAILY 06/03/18 [History] Calcium Carb/D3/Magnesium/Zinc [Ozzy Mag Zinc + D3] 1 tab PO DAILY 06/03/18 [History] Cholecalciferol (Vitamin D3) [Vitamin D3] 5,000 unit PO DAILY 06/03/18 [History] Cyanocobalamin (Vitamin B-12) [Vitamin B-12] 1,000 mcg PO DAILY 06/03/18 [History] Folic Acid 1 mg PO DAILY 06/03/18 [History] Furosemide 40 mg PO DAILY 06/03/18 [History] Glucosamine/D3/Boswellia Ruthie [Osteo Bi-Flex Caplet] 1 tab PO DAILY 06/03/18 [History] LORazepam [Ativan] 0.5 mg PO BID PRN 06/03/18 [History] Latanoprost [Xalatan 0.005% Ophth Soln] 1 drop EYEBOTH BEDTIME 06/03/18 [History] Multivitamin [Poly-Vitamin] 1 tab PO DAILY 06/03/18 [History] Potassium Chloride 10 meq PO DAILY 06/03/18 [History] atorvaSTATin Calcium [Atorvastatin Calcium] 20 mg PO DAILY 06/03/18 [History] Aspirin [Ecotrin EC] 325 mg PO BID #84 tab.ec 06/05/18 [Rx] Docusate Sodium [Colace] 100 mg PO BID cap 06/05/18 [Rx] Famotidine [Pepcid] 20 mg PO Q12H tablet 06/05/18 [Rx] Magnesium Hydroxide [Milk of Magnesia] 30 ml PO BID PRN cup 06/05/18 [Rx] Sennosides [Senna] 8.6 mg PO BID PRN tablet 06/05/18 [Rx] bisacodyL [Dulcolax] 5 mg PO DAILY PRN tablet 06/05/18 [Rx] Acetaminophen/HYDROcodone [[place] 325-5 MG] 1 tab PO Q6H PRN #60 tablet 06/07/18 [Rx] Hydrocodone/Acetaminophen [Hydrocodon-Acetaminophen 5-325] 1 each PO Q6H #20 tablet 10/29/20 [Rx] Past Medical History HEENT History: Reports: Cataract, Impaired Vision Other HEENT History: wears glasses Cardiovascular History: Reports: High Cholesterol, Hypertension Respiratory History: Reports: None Gastrointestinal History: Reports: Colon Polyp, Hemorrhoids, Other (See Below) Other Gastrointestinal History: elevated LFTS Genitourinary History: Reports: None 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: Musculoskeletal History: Reports: Arthritis, Fracture, Osteoporosis, Other (See Below) Other Musculoskeletal History: left knee pain, broken wrist x 2 Neurological History: Reports: Other (See Below) Other Neuro History: henderson's palsy Psychiatric History: Reports: Anxiety, Depression Endocrine/Metabolic History: Reports: Vitamin D Deficiency, Other (See Below) Other Endocrine/Metabolic History: hypoglycemia Hematologic History: Reports: Anemia Immunologic History: Reports: None Oncologic (Cancer) History: Reports: None Dermatologic History: Reports: None - Infectious Disease History Infectious Disease History: Reports: Chicken Pox, Influenza - Past Surgical History Head Surgeries/Procedures: Reports: None HEENT Surgical History: Reports: Cataract Surgery Cardiovascular Surgical History: Reports: None Respiratory Surgical History: Reports: None GI Surgical History: Reports: Colonoscopy Female Surgical History: Reports: None Endocrine Surgical History: Reports: None Neurological Surgical History: Reports: None Musculoskeletal Surgical History: Reports: Arthroscopic Procedure Other Musculoskeletal Surgeries/Procedures:: LTKA on 06/05/18 Oncologic Surgical History: Reports: None Dermatological Surgical History: Reports: None Social & Family History - Family History Family Medical History: No Pertinent Family History Cardiac: Reports: PR Neurological: Reports: CVA Endocrine/Metabolic: Reports: Diabetes, type II - Tobacco Use Tobacco Use Status *Q: Never Tobacco User - Caffeine Use Caffeine Use: Reports: None - Recreational Drug Use Recreational Drug Use: No Review of Systems - Review of Systems Review Of Systems: Comprehensive ROS is negative, except as noted in HPI. ED EXAM, GENERAL - Physical Exam Exam: See Below Exam Limited By: No Limitations General Appearance: Alert, WD/WN, No Apparent Distress Respiratory/Chest: No Respiratory Distress, Lungs Clear, Normal Breath Sounds, No Accessory Muscle Use, Chest Non-Tender Cardiovascular: Normal Peripheral Pulses, Regular Rate, Rhythm Peripheral Pulses: 2+: Radial (L), Radial (R) Extremities: Normal Inspection, Normal Capillary Refill, Pedal Edema (1+) Neurological: Alert, Oriented, Normal Cognition, No Motor/Sensory Deficits Psychiatric: Normal Affect, Normal Mood Skin Exam: Warm, Dry, Intact, Normal Color, No Rash Course - Vital Signs Last Recorded V/S: Last Vital Signs Temp 97 F 10/29/20 17:28 Pulse 95 10/29/20 17:28 Resp 16 10/29/20 17:28 BP 160/85 H 10/29/20 17:28 Pulse Ox 97 10/29/20 17:28 - Re-Assessments/Exams Free Text/Narrative Re-Assessment/Exam: 10/29/20 18:20 Patient presents to the ED for her right leg swelling and pain. We will get ultrasound of the area. She did call her surgeon and they state that the numbness is common postsurgical change. She has good strength and no other neurologic deficits in her right leg. I will likely have her refer to the surgeon for management of the numbness down the line if ultrasound is unremarkable. 10/29/20 19:14 Patient's ultrasound has been done, there is no sign of a DVT present. Patient is relieved by this finding, she states she will follow-up with her neurosurgeon regarding the numbness. She does state however that she is out of her pain medications, and was not able to get them refilled by her neurologist, I will give her a one-time refill so she can get through the holiday weekend and follow-up on Tuesday. Departure - Departure Time of Disposition: :18 Disposition: Home, Self-Care 01 Condition: Good Clinical Impression: Right leg pain - Discharge Information *PRESCRIPTION DRUG MONITORING PROGRAM REVIEWED*: Yes *COPY OF PRESCRIPTION DRUG MONITORING REPORT IN PATIENT MALORIE: No Instructions: Pain Medicine Instructions, [id number] Referrals: Yun Fang MD [Primary Care Provider] - Forms: ED Department Discharge Additional Instructions: You were evaluated in the ER today for your right leg pain and swelling. An ultrasound was done at today's visit to rule out blood clot in your leg, and this was negative for any sort of blood clot within your leg. Recommend you go home, try to rest over the next few days elevate your leg is much as possible to help relieve some of the swelling. You were given a one-time refill of your pain medication, hydrocodone/acetaminophen 5/325 mg. Please use 1 tab every 6 hours as needed for further pain relief. Do not drive while taking this medication. This med ication can be addictive, so take as few of these as possible in order to provide adequate pain relief. These medications also can be constipating I recommend that you take a stool softener like MiraLAX or Dulcolax while using these medications and increase your oral fluid hydration. Please follow-up with your surgeon regarding your ongoing numbness, and to make sure it is getting better as expected and not worsening. Please return to the ER however at any time if symptoms change or worsen. Sepsis Event Note (ED) - Evaluation Sepsis Screening Result: No Definite Risk - Focused Exam Vital Signs: Vital Signs Temp Pulse Resp BP Pulse Ox 10/29/20 17:28 97 F 95 16 160/85 H 97
--- NOTE | 2020-10-29 18:43 | US ---
Right lower extremity deep venous ultrasound: Duplex and color Doppler evaluation was obtained of the right common, proximal GSV, saphenous, popliteal, posterior tibial and peroneal veins. Left common femoral vein was also evaluated. Findings: Normal phasic flow, augmentation and compression is seen. Impression: 1. Nothing is seen to indicate deep venous thrombosis within the right lower extremity or left common femoral vein. Diagnostic code #1
== END 2020-10-29 19:42 | disposition home or self-care (01) ==
LOC: JD.ED 17:16
DX: M79.604 Pain in right leg (principal); E78.00 Pure hypercholesterolemia, unspecified; I10 Essential (primary) hypertension; M19.90 Unspecified osteoarthritis, unspecified site; F41.9 Anxiety disorder, unspecified; F32.9 Major depressive disorder, single episode, unspecified; Z79.899 Other long term (current) drug therapy; Z79.82 Long term (current) use of aspirin
CPT/HCPCS: 93971-26-RT; 93971-RT; 99284-25

== ENCOUNTER 2021-03-23 09:50 | Day surgery (SDC) | payer MEDICARE, OTHER ==
[~2021-03-23 09:50] MED LIST: Acetaminophen 325 MG Tab PO SCH; Lactated Ringers 1,000 ML IV SCH; Lidocaine 1%/Sod Bicarbonate in NS 8.4% 1 ML Syringe IDERM PRN; Morphine 8 MG, EPINEPHrine 0.3 MG, Cefuroxime 750 MG, Ketorolac 30 MG, Sodium Chloride ... PRN; Pregabalin 25 MG Cap PO SCH; Sodium Chloride 0.9% 10 ML Syringe FLUSH PRN; oxyCODONE ER 10 MG TAB.ER PO SCH
[2021-03-23] MEDS ORDERED: Vancomycin 1 GM SDV ONE (10:15)
--- NOTE | 2021-03-23 11:03 | PCM.PREANE ---
Preanesthetic Assessment - Anesthesia/Transfusion/Family Hx Anesthesia History: Prior Anesthesia Without Reaction Family History of Anesthesia Reaction: No Transfusion History: No Prior Transfusion(s) - Review of Systems General: No Symptoms, Other (BELLS PALSY) Pulmonary: No Symptoms Cardiovascular: Other (CAD, DENIES ANY CHEST PAIN) Gastrointestinal: No Symptoms Neurological: Numbness (RIGHT KNEE DOWN TO TOES, SHOOTING PAIN ), Other (HX OF BACK SURGERY WITH FUSION L4-S1, HX OF DISCECTOMY L2- S1) Other: Reports: Anxiety - Physical Assessment NPO Status Date: 03/22/21 NPO Status Time: 23:00 Height: 1.52 m Weight: 65.771 kg ASA Class: 2 Mental Status: Alert & Oriented x3 Airway Class: Mallampati = 2 Dentition: Reports: Normal Dentition Thyro-Mental Finger Breadths: 3 Mouth Opening Finger Breadths: 3 ROM/Head Extension: Full Lungs: Clear to Auscultation, Normal Respiratory Effort Cardiovascular: Regular Rate, Regular Rhythm - Lab Values: Laboratory Last Values MRSA (PCR) Cancelled 02/03/21 12:25 - Allergies Allergies/Adverse Reactions: Allergies Allergy/AdvReac Type Severity Reaction Status Date / Time No Known Allergies Allergy Verified 03/23/21 10:44 - Blood Blood Available: No Product(s) Available: None - Acknowledgements Anesthesia Type Planned: Spinal Pt an Appropriate Candidate for the Planned Anesthesia: Yes Alternatives and Risks of Anesthesia Discussed w Pt/Guardian: Yes Pt/Guardian Understands and Agrees with Anesthesia Plan: Yes PreAnesthesia Questionnaire HEENT History: Reports: Cataract, Impaired Vision Other HEENT History: wears glasses Cardiovascular History: Reports: CAD, High Cholesterol, Hypertension Respiratory History: Reports: None Gastrointestinal History: Reports: Colon Polyp, Diverticulosis, Hemorrhoids, Other (See Below) Other Gastrointestinal History: elevated LFTS Genitourinary History: Reports: None 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: Musculoskeletal History: Reports: Arthritis, Fracture, Gout, Osteoporosis, Other (See Below) Other Musculoskeletal History: left knee pain, broken wrist x 2, chronic pain, carpal tunnel syndrome Neurological History: Reports: Other (See Below) Other Neuro History: henderson's palsy, lumbar stenosis, with neurogenic claudication Psychiatric History: Reports: Anxiety, Depression Endocrine/Metabolic History: Reports: Osteopenia, Vitamin D Deficiency, Other (See Below) Other Endocrine/Metabolic History: hypoglycemia Hematologic History: Reports: Anemia Immunologic History: Reports: None Oncologic (Cancer) History: Reports: None Dermatologic History: Reports: Other (See Below) Other Dermatologic History: lymphadema - Infectious Disease History Infectious Disease History: Reports: Chicken Pox, Influenza - Past Surgical History Head Surgeries/Procedures: Reports: None HEENT Surgical History: Reports: Cataract Surgery Cardiovascular Surgical History: Reports: None Respiratory Surgical History: Reports: None GI Surgical History: Reports: Colonoscopy Female Surgical History: Reports: None Male Surgical History: Reports: None Endocrine Surgical History: Reports: None Neurological Surgical History: Reports: Discectomy, Laminectomy Musculoskeletal Surgical History: Reports: Arthroscopic Procedure, Knee Replacement, Shoulder Surgery Other Musculoskeletal Surgeries/Procedures:: LTKA on 06/05/18 Oncologic Surgical History: Reports: None Dermatological Surgical History: Reports: None - SUBSTANCE USE Tobacco Use Status *Q: Former Tobacco User Recreational Drug Use History: No - HOME MEDS Home Medications: Home Meds Ascorbic Acid [Vitamin C] 250 mg PO DAILY 06/03/18 [History] Calcium Carb/D3/Magnesium/Zinc [Ozzy Mag Zinc + D3] 1 tab PO BID 06/03/18 [History] Cholecalciferol (Vitamin D3) [Vitamin D3] 5,000 unit PO DAILY 06/03/18 [History] Cyanocobalamin (Vitamin B-12) [Vitamin B-12] 1,000 mcg PO DAILY 06/03/18 [History] Folic Acid 1 mg PO DAILY 06/03/18 [History] Glucosamine/D3/Boswellia Ruthie [Osteo Bi-Flex Caplet] 1 tab PO DAILY 06/03/18 [History] LORazepam [Ativan] 0.5 mg PO BID PRN 06/03/18 [History] Latanoprost [Xalatan 0.005% Ophth Soln] 1 drop EYEBOTH BEDTIME 06/03/18 [History] Potassium Chloride 10 meq PO DAILY 06/03/18 [History] Acetaminophen [Tylenol] 650 mg PO Q4H PRN 03/20/21 [History] Amoxicillin 2,000 mg PO ASDIRECTED PRN 03/20/21 [History] Aspirin 81 mg PO DAILY 03/20/21 [History] Ezetimibe [Zetia] 10 mg PO DAILY 03/20/21 [History] Furosemide [Lasix] 20 mg PO DAILY 03/20/21 [History] Gabapentin [Neurontin] 200 mg PO DAILY PRN 03/20/21 [History] Rosuvastatin [Crestor] 10 mg PO BEDTIME 03/20/21 [History] Vit A/Vit C/Vit E/Zinc/Copper [Icaps Areds Formula] 2 tab PO DAILY 03/20/21 [History] allopurinoL [Zyloprim] 100 mg PO DAILY 03/20/21 [History] Rivaroxaban [Xarelto] 10 mg PO DAILY #35 tab 03/23/21 [Rx] oxyCODONE 5 - 10 mg PO Q4H PRN #40 tab 03/23/21 [Rx] - CURRENT (IN HOUSE) MEDS Current Meds: Current Medications Acetaminophen (Acetaminophen 325 Mg Tab) 975 mg PO ONETIME JESSA Stop: 03/23/21 13:00 Last Admin: 03/23/21 10:37 Dose: 975 mg Documented by: Morphine Sulfate 8 mg/Epinephrine HCl 0.3 mg/Cefuroxime Sodium 750 mg/Ketorolac Tromethamine 30 mg/Sodium Chloride 7.9 ml 0 mg .XX ASDIRECTED PRN PRN Reason: Pain Stop: 03/23/21 13:00 Lactated Ringer's (Ringers, Lactated) 1,000 mls @ 125 mls/hr IV ASDIRECTED JESSA Stop: 03/23/21 23:00 Last Admin: 03/23/21 10:30 Dose: 125 mls/hr Documented by: Lidocaine/Sodium Bicarbonate (Lidocaine 1%/Sod Bicarbonate In Ns 8.4% 1 Ml Syringe) 0.25 ml IDERM ONETIME PRN PRN Reason: Prior to IV Start Stop: 03/23/21 18:00 Last Admin: 03/23/21 10:30 Dose: 0.25 ml Documented by: Oxycodone HCl (Oxycodone Er 10 Mg Tab.Er) 10 mg PO ONETIME JESSA Stop: 03/23/21 13:00 Last Admin: 03/23/21 10:36 Dose: 10 mg Documented by: Pregabalin (Pregabalin 25 Mg Cap) 50 mg PO ONETIME JESSA Stop: 03/23/21 13:00 Last Admin: 03/23/21 10:35 Dose: 50 mg Documented by: Sodium Chloride (Sodium Chloride 0.9% 10 Ml Syringe) 10 ml FLUSH ASDIRECTED PRN PRN Reason: Keep Vein Open Stop: 03/23/21 18:00 Discontinued Medications Tranexamic Acid (Tranexamic Acid 1,000 Mg/10 Ml Amp) Confirm Administered Dose 1,000 mg .ROUTE .STK-MED ONE Stop: 03/23/21 10:16 Vancomycin HCl (Vancomycin 1 Gm Sdv) Confirm Administered Dose 1 gm .ROUTE .STK- MED ONE Stop: 03/23/21 10:16
[2021-03-23] MEDS ORDERED: Propofol 200 MG/20 ML SDV ONE ×2 (11:20→12:53)
[2021-03-23] MEDS ORDERED: Lidocaine 1% 4 ML ONE (11:21)
[2021-03-23] MEDS ORDERED: Midazolam 1 MG/ML 2 ML SDV ONE (11:22)
[2021-03-23] MEDS ORDERED: fentaNYL 100 MCG/2 ML SDV ONE (11:22)
[2021-03-23] MEDS ORDERED: ceFAZolin 1 GM Vial ONE (11:28)
[2021-03-23] MEDS ORDERED: fentaNYL 100 MCG/2 ML SDV IVPUSH PRN (12:32)
[2021-03-23] MEDS ORDERED: Ondansetron 4 MG/2 ML SDV IVPUSH PRN (12:32)
[2021-03-23] MEDS ORDERED: Lactated Ringers 1,000 ML ONE (12:44)
[2021-03-23] MEDS ORDERED: Ondansetron 4 MG/2 ML SDV ONE (13:25)
[2021-03-23] MEDS ORDERED: Ketorolac 15 MG/ML SDV ONE (13:25)
--- NOTE | 2021-03-23 14:05 | PCM.POSTAN ---
POST ANESTHESIA ASSESSMENT - MENTAL STATUS Mental Status: Alert, Oriented - VITAL SIGNS Vital Signs: Last Vital Signs Temp 36.2 C 03/23/21 10:00 Pulse 89 03/23/21 10:00 Resp 20 03/23/21 10:00 BP 161/89 H 03/23/21 10:00 Pulse Ox 98 03/23/21 10:00 - RESPIRATORY Respiratory Status: Respiratory Rate WNL, Airway Patent, O2 Saturation Stable - CARDIOVASCULAR CV Status: Pulse Rate WNL, Blood Pressure Stable - GASTROINTESTINAL GI Status: No Symptoms - PAIN Pain Score: 0 - POST OP HYDRATION Hydration Status: Adequate & Stable
--- NOTE | 2021-03-23 14:25 | PCM48HPAN ---
Post Anesthesia Note - EVALUATION WITHIN 48HRS OF ANESTHETIC Vital Signs in Normal Range: Yes Patient Participated in Evaluation: Yes Respiratory Function Stable: Yes Airway Patent: Yes Cardiovascular Function Stable: Yes Hydration Status Stable: Yes Pain Control Satisfactory: Yes Nausea and Vomiting Control Satisfactory: Yes Mental Status Recovered: Yes Vital Signs: Last Vital Signs Temp 36.4 C 03/23/21 13:58 Pulse 89 03/23/21 10:00 Resp 10 L 03/23/21 14:20 BP 117/69 03/23/21 14:20 Pulse Ox 99 03/23/21 14:20
--- NOTE | 2021-03-23 14:49 | CR ---
Pelvis and right hip: AP view of the pelvis was obtained as well as a lateral view of the right hip. Right hip prosthesis is seen. Components are aligned. Soft tissue air is noted around the right hip compatible with recent surgery. Prior surgery is noted within the lumbar spine. Joint space within left hip is mildly narrowed. Impression: 1. Satisfactory appearance of recently placed right hip prosthesis. 2. Other findings as noted above. Diagnostic code #2
[2021-03-23 19:48] VITALS: BP 106/58; PULSE 79
[2021-03-23] MEDS ORDERED: ceFAZolin 2 GM in Premix Bag 1 BAG IV SCH (20:00)
--- NOTE | 2021-04-02 11:37 | PCM.OPNOTE ---
- General Post-Op/Procedure Note Date of Surgery/Procedure: 03/23/21 Operative Procedure(s): right total hip arthroplasty with [employer] robot[employer] Pre Op Diagnosis: right hip osteoarthrosis Post-Op Diagnosis: Same Anesthesia Technique: Local, MAC, Spinal Primary Surgeon: Johnathan Rodriguez Anesthesia Provider: Soraida Norman Car Examiner: Magdalene Garcia Car Examiner: Laila Reich EBL in mLs: 200 Complications: None Condition: Good Free Text/Narrative:: 54 cup 4 stem 28-2.7 MDM
--- NOTE | 2021-04-07 07:54 | OR ---
DATE OF OPERATION: 03/23/2021 SURGEON: Johnathan Rodriguez MD OPERATION PERFORMED: Right total hip arthroplasty with [employer]. PREOPERATIVE DIAGNOSIS: Right hip osteoarthrosis. POSTOPERATIVE DIAGNOSIS: Right hip osteoarthrosis. ANESTHESIA: Local MAC with spinal. ANESTHESIA PROVIDER: Soraida Norman CRNA ASSISTANTS: Magdalene Garcia PA-C; and Laila Reich LPN. ESTIMATED BLOOD LOSS: 200 mL. COMPLICATIONS: None. CONDITION: Stable. IMPLANTS: 1. [employer] size 54 mm solid Tritanium II acetabular cup. 2. [employer] size 4 Accolade II stem. 3. [employer] size 28 -2.7/42 MDM components. DESCRIPTION OF PROCEDURE: The patient was identified in the preoperative holding area. Proper site was marked and identified by the surgeon. The patient was taken back to the operative theater, where after adequate anesthesia, the patient was placed in a left lateral decubitus position. Axillary roll was placed. All bony prominences were well padded. The patient's gluteal fold was parallel to the floor. Pegs were then placed and well padded. The right hip was then sterilely prepped and draped in the usual sterile fashion. OR time-out was performed. The patient received 2 g IV Ancef. At this time, 3 4.0 Schanz pins were placed in the iliac crest couple of fingerbreadths posterior to the ASIS and a [employer]i Theron robotic array was placed down onto the iliac crest and was aligned appropriately. At this time, standard posterior incision was made centered over the greater trochanter. This was taken down to the IT band and gluteal fascia which was incised along the incisional length. Charnley retractor was then placed. Hip length was then obtained using the [employer] robotic array with a checkpoint on the greater tuberosity and distally and a point marked down by the knee. Takedown of the short external rotators as well as capsulotomy was performed down from the piriformis down to the lesser trochanter. Hip was then dislocated and neck cut was completed and found to be adequate. Attention was turned to the acetabulum. Anterior and posterior acetabular retractors were placed. At this time, circumferential removal of the labrum was undertaken as well as in the pulvinar. Checkpoint was placed on the acetabulum. 15 points were then obtained intra-articularly as well as extra-articularly on the acetabular rim. docplanner robotic planned for this patient for a 54 mm cup. The 54 reamer was then brought in on the docplanner robotic arm and the reaming was undertaken until all green was gone and just a small rim of red for reaming on the edges. The reamer was then removed. The impactor with the 54 mm cup was then brought in and the docplanner robotic arm was impacted into the place in roughly 45 degrees of abduction and 20 degrees of anteversion. It was found to be well seated. The MDM liner was then impacted into place and attention was turned to the femur. Box chisel was used out laterally. Starter awl was placed down the canal. Starting with a 0 broach, I was able to broach up to a size 4 which was found to be rotationally and vertically stable for this patient. 28 -2.7 MDM trial components were then placed. The patient's hip was brought through a range of motion. Leg lengths were found to be equal. There was no signs of instability. Bone hook was used to dislocate the trial components. A size 4 Accolade II stem was impacted into place and the 28 - 2.7/42 MDM components were constructed on the back table and impacted onto the stem. Hip was then relocated. #5 Ethibond suture was used for closure of the short external rotators and capsule. Periarticular injection was completed. 1 L pulse lavage irrigation with Ancef was irrigated through the hip along with 400 mL IrriSept irrigation. Topical tranexamic acid and vancomycin powder were then applied. A #2 barbed suture was used for closure of the IT band and gluteal fascia. 2-0 Vicryl was used subcutaneously, and Prineo was used for closure of the skin. The patient tolerated the procedure well and was sent to the PACU in stable condition. MMODAL /[id number]
== END 2021-03-23 18:55 | disposition home or self-care (01) ==
LOC: JD.SDS 09:50 → JD.MS 16:04 → JD.SDS 18:55
PROVIDERS: ATTEND Orthopaedic Surgery
DX: M16.11 Unilateral primary osteoarthritis, right hip (principal); E78.2 Mixed hyperlipidemia; I25.10 Atherosclerotic heart disease of native coronary artery without angina pectoris; Z86.010 Personal history of colon polyps; E55.9 Vitamin D deficiency, unspecified; Z79.899 Other long term (current) drug therapy; Z98.890 Other specified postprocedural states; Z87.891 Personal history of nicotine dependence; G89.29 Other chronic pain; E78.00 Pure hypercholesterolemia, unspecified
CPT/HCPCS: 01214; 36415; 73501-26-RT; 73501-RT; 86850; 86900; 86901; 87641; 97110-GP; 97161-GP; 97165-GO; 97535-GO; 99100; A9270-GY; C1713; C1776; J0171; J0690; J0697; J1885; J2250; J2270; J2405; J2704; J3010; J3370; J7120

== ENCOUNTER 2021-03-27 15:35 | Emergency (ER) | payer MEDICARE, OTHER ==
[2021-03-27 15:53] VITALS: BP 146/73; PULSE 97
--- NOTE | 2021-03-27 16:17 | EDM.PDOC ---
ED HPI GENERAL MEDICAL PROBLEM - General Chief Complaint: Lower Extremity Injury/Pain Stated Complaint: R FOOT AND LEG SWELLING POST HIP SURGERY Time Seen by Provider: 03/27/21 15:43 Source of Information: Reports: Patient History Limitations: Reports: No Limitations - History of Present Illness INITIAL COMMENTS - FREE TEXT/NARRATIVE: 70-year-old female presents the emergency department today with complaints of right lower extremity swelling. Patient had a right total hip replacement 4 days ago. She states she has been doing her exercises at home and has not started physical therapy yet. She states over the course of the last 2 days she has developed significant swelling in the right lower extremity. She also has a significant amount of bruising noted to her knee and anterior portion of her tib-fib area. She reports increased pain in the right lower extremity. She is able to still ambulate however she states it is fairly painful. She is currently taking Xarelto and aspirin since her hip surgery. She denies shortness of breath. She denies any other symptoms. Right Leg Pain Score (Numeric/FACES): 7 - Related Data Allergies Allergy/AdvReac Type Severity Reaction Status Date / Time No Known Allergies Allergy Verified 03/23/21 10:44 Home Meds: Home Meds Ascorbic Acid [Vitamin C] 250 mg PO DAILY 06/03/18 [History] Calcium Carb/D3/Magnesium/Zinc [Ozzy Mag Zinc + D3] 1 tab PO BID 06/03/18 [History] Cholecalciferol (Vitamin D3) [Vitamin D3] 5,000 unit PO DAILY 06/03/18 [History] Cyanocobalamin (Vitamin B-12) [Vitamin B-12] 1,000 mcg PO DAILY 06/03/18 [History] Folic Acid 1 mg PO DAILY 06/03/18 [History] Glucosamine/D3/Boswellia Ruthie [Osteo Bi-Flex Caplet] 1 tab PO DAILY 06/03/18 [History] LORazepam [Ativan] 0.5 mg PO BID PRN 06/03/18 [History] Latanoprost [Xalatan 0.005% Ophth Soln] 1 drop EYEBOTH BEDTIME 06/03/18 [History] Potassium Chloride 10 meq PO DAILY 06/03/18 [History] Acetaminophen [Tylenol] 650 mg PO Q4H PRN 03/20/21 [History] Amoxicillin 2,000 mg PO ASDIRECTED PRN 03/20/21 [History] Aspirin 81 mg PO DAILY 03/20/21 [History] Ezetimibe [Zetia] 10 mg PO DAILY 03/20/21 [History] Furosemide [Lasix] 20 mg PO DAILY 03/20/21 [History] Gabapentin [Neurontin] 200 mg PO DAILY PRN 03/20/21 [History] Rosuvastatin [Crestor] 10 mg PO BEDTIME 03/20/21 [History] Vit A/Vit C/Vit E/Zinc/Copper [Icaps Areds Formula] 2 tab PO DAILY 03/20/21 [History] allopurinoL [Zyloprim] 100 mg PO DAILY 03/20/21 [History] Cyclobenzaprine [Flexeril] 10 mg PO BID PRN #20 tab 03/23/21 [Rx] Rivaroxaban [Xarelto] 10 mg PO DAILY #35 tab 03/23/21 [Rx] oxyCODONE 5 - 10 mg PO Q4H PRN #40 tab 03/23/21 [Rx] Past Medical History HEENT History: Reports: Cataract, Impaired Vision Other HEENT History: wears glasses Cardiovascular History: Reports: CAD, High Cholesterol, Hypertension Respiratory History: Reports: None Gastrointestinal History: Reports: Colon Polyp, Diverticulosis, Hemorrhoids, Other (See Below) Other Gastrointestinal History: elevated LFTS Genitourinary History: Reports: None 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: Musculoskeletal History: Reports: Arthritis, Fracture, Gout, Osteoporosis, Other (See Below) Other Musculoskeletal History: left knee pain, broken wrist x 2, chronic pain, carpal tunnel syndrome Neurological History: Reports: Other (See Below) Other Neuro History: henderson's palsy, lumbar stenosis, with neurogenic claudication Psychiatric History: Reports: Anxiety, Depression Endocrine/Metabolic History: Reports: Osteopenia, Vitamin D Deficiency, Other (See Below) Other Endocrine/Metabolic History: hypoglycemia Hematologic History: Reports: Anemia Immunologic History: Reports: None Oncologic (Cancer) History: Reports: None Dermatologic History: Reports: Other (See Below) Other Dermatologic History: lymphadema - Infectious Disease History Infectious Disease History: Reports: Chicken Pox, Influenza - Past Surgical History Head Surgeries/Procedures: Reports: None HEENT Surgical History: Reports: Cataract Surgery Cardiovascular Surgical History: Reports: None Respiratory Surgical History: Reports: None GI Surgical History: Reports: Colonoscopy Female Surgical History: Reports: None Endocrine Surgical History: Reports: None Neurological Surgical History: Reports: Discectomy, Laminectomy Musculoskeletal Surgical History: Reports: Arthroscopic Procedure, Hip Replacement, Knee Replacement, Shoulder Surgery Other Musculoskeletal Surgeries/Procedures:: LTKA on 06/05/18 Oncologic Surgical History: Reports: None Dermatological Surgical History: Reports: None Social & Family History - Family History Family Medical History: No Pertinent Family History Cardiac: Reports: AR Neurological: Reports: CVA Endocrine/Metabolic: Reports: Diabetes, type II - Tobacco Use Tobacco Use Status *Q: Never Tobacco User - Caffeine Use Caffeine Use: Reports: None - Recreational Drug Use Recreational Drug Use: No Review of Systems - Review of Systems Review Of Systems: Comprehensive ROS is negative, except as noted in HPI. ED EXAM, GENERAL - Physical Exam Exam: See Below Exam Limited By: No Limitations General Appearance: Alert, WD/WN, No Apparent Distress Ears: Normal External Exam, Hearing Grossly Normal Nose: Normal Inspection Throat/Mouth: Normal Inspection, Normal Lips, Normal Voice, No Airway Compromise Head: Atraumatic Neck: Normal Inspection, Supple Respiratory/Chest: No Respiratory Distress, Lungs Clear, Normal Breath Sounds, No Accessory Muscle Use, Chest Non-Tender Cardiovascular: Normal Peripheral Pulses, Regular Rate, Rhythm, No Murmur. No: No Edema (3+ pitting edema noted to the right lower extremity) Peripheral Pulses: 1+: Dorsalis Pedis (R), 2+: Radial (L), Radial (R), Dorsalis Pedis (L) GI/Abdominal: Normal Bowel Sounds, No Distention (Female) Exam: Deferred Rectal (Female) Exam: Deferred Back Exam: Normal Inspection Extremities: Normal Inspection, Pedal Edema (Right lower extremity). No: Non- Tender (Right lower extremity is tender) Neurological: Alert, Oriented, Normal Cognition Psychiatric: Normal Affect, Normal Mood Skin Exam: Warm, Dry, Intact, Normal Color, No Rash Lymphatic: No Adenopathy Course - Vital Signs Text/Narrative:: Patient presents the ER with swelling to the right lower extremity postop day 5 from a right total hip replacement. Patient states the swelling started 2 days ago and today presents due to increased pain. She denies any shortness of breath or respiratory symptoms. She is currently taking Xarelto and aspirin. It is fairly unlikely that she has a DVT however we will do an ultrasound of the right lower extremity to rule this out. I am able to palpate pedal pulses on the right lower extremity. She does however have 3+ pitting edema noted to her foot and lower leg. I have also ordered a CBC and a CMP. Her right foot is cold and pale. Last Recorded V/S: Last Vital Signs Temp 97.3 F 03/27/21 15:52 Pulse 97 03/27/21 15:52 Resp 20 03/27/21 15:52 BP 146/73 H 03/27/21 15:52 Pulse Ox 100 03/27/21 15:52 - Orders/Labs/Meds Labs: Laboratory Tests 03/27/21 03/27/21 Range/Units 16:40 16:40 WBC 7.03 (3.98-10.04) K/mm3 RBC 2.87 L (3.98-5.22) M/mm3 Hgb 8.8 L D (11.2-15.7) gm/dl Hct 27.7 L (34.1-44.9) % MCV 96.5 H D (79.4-94.8) fl MCH 30.7 (25.6-32.2) pg MCHC 31.8 L (32.2-35.5) g/dl RDW Std Deviation 50.8 H (36.4-46.3) fL Plt Count 296 (182-369) K/mm3 MPV 8.6 L (9.4-12.3) fl Neut % (Auto) 63.9 (34.0-71.1) % Lymph % (Auto) 17.8 L (19.3-51.7) % [place] % (Auto) 13.4 H (4.7-12.5) % Eos % (Auto) 1.4 (0.7-5.8) Baso % (Auto) 0.4 (0.1-1.2) % Neut # (Auto) 4.49 (1.56-6.13) K/mm3 Lymph # (Auto) 1.25 (1.18-3.74) K/mm3 [place] # (Auto) 0.94 H (0.24-0.36) K/mm3 Eos # (Auto) 0.10 (0.04-0.36) K/mm3 Baso # (Auto) 0.03 (0.01-0.08) K/mm3 Manual Slide Review Abnormal smear Sodium 138 (136-145) mEq/L Potassium 3.6 (3.5-5.1) mEq/L Chloride 100 (98-107) mEq/L Carbon Dioxide 30 (21-32) mEq/L Anion Gap 11.6 (5-15) BUN 11 (7-18) mg/dL Creatinine 0.7 (0.55-1.02) mg/dL Est Cr Clr Drug Dosing 52.18 mL/min Estimated GFR (MDRD) > 60 (>60) mL/min BUN/Creatinine Ratio 15.7 (14-18) Glucose 108 H (70-99) mg/dL Calcium 8.8 (8.5-10.1) mg/dL Total Bilirubin 0.8 (0.2-1.0) mg/dL AST 42 H (15-37) U/L ALT 29 (14-59) U/L Alkaline Phosphatase 75 (46-116) U/L Total Protein 7.0 (6.4-8.2) g/dl Albumin 3.0 L (3.4-5.0) g/dl Globulin 4.0 gm/dL Albumin/Globulin Ratio 0.8 L (1-2) - Re-Assessments/Exams Free Text/Narrative Re-Assessment/Exam: 03/27/21 17:20 Hematology reveals a WBC of 7.03, hemoglobin 8.8, hematocrit 27.7, chemistry reveals a sodium of one thirty-eight, potassium 3.6, glucose one oh eight, AST forty-two, ALT twenty-nine Radiologist impression right lower extremity deep vein ultrasound; one. No findings are seen to indicate deep venous thrombosis within the right lower extremity or within the left common femoral vein. #2. No change from previous study is seen. Patient will be discharged home with recommendations that she rest ice elevate for the weekend. She states she does have a follow-up appointment scheduled with her orthopedist in 4 days. Departure - Departure Time of Disposition: 17:36 Disposition: Home, Self-Care 01 Condition: Good Clinical Impression: Edema of right lower extremity - Discharge Information Referrals: Yun Fang MD [Primary Care Provider] - Forms: ED Department Discharge Additional Instructions: You were seen in the emergency department today with complaints of swelling to your right leg after having surgery 4 days ago. An ultrasound was completed to rule out a blood clot in your leg. This was negative. There is no blood clot in your right leg. Labs were also completed. Your blood levels are little low however this is to be expected after having surgery. Recommend that you go home and rest elevate your right leg as much as possible. Use ice for comfort. Keep your follow-up appointment as scheduled on Tuesday. Should your condition worse n or change, do not hesitate returning to the emergency department. Sepsis Event Note (ED) - Evaluation Sepsis Screening Result: No Definite Risk - Focused Exam Vital Signs: Vital Signs Temp Pulse Resp BP Pulse Ox 03/27/21 15:52 97.3 F 97 20 146/73 H 100
--- NOTE | 2021-03-27 16:54 | US ---
Right lower extremity deep venous ultrasound: Duplex and color Doppler evaluation was obtained of the right common femoral, proximal greater saphenous, superficial femoral, popliteal, posterior tibial and peroneal veins. Left common femoral vein was also evaluated. Comparison: Prior right lower extremity venous ultrasound of 10/29/20. Findings: Normal phasic flow, augmentation and compression is seen. Impression: 1. No findings are seen to indicate deep venous thrombosis within the right lower extremity or within the left common femoral vein. 2. No change from previous study is seen. Diagnostic code #1
== END 2021-03-27 17:50 | disposition home or self-care (01) ==
LOC: JD.ED 15:35
DX: R60.0 Localized edema (principal); I25.10 Atherosclerotic heart disease of native coronary artery without angina pectoris; E78.00 Pure hypercholesterolemia, unspecified; I10 Essential (primary) hypertension; Z79.82 Long term (current) use of aspirin; Z79.899 Other long term (current) drug therapy
CPT/HCPCS: 36415; 80053; 85025; 93971-26-RT; 93971-RT; 99283; 99284-25

== ENCOUNTER 2021-06-25 06:09 | Day surgery (SDC) | payer MEDICARE, OTHER ==
[~2021-06-25 06:09] MED LIST changes: -Acetaminophen 325 MG Tab PO SCH; -Morphine 8 MG, EPINEPHrine 0.3 MG, Cefuroxime 750 MG, Ketorolac 30 MG, Sodium Chloride ... PRN; -Pregabalin 25 MG Cap PO SCH; -oxyCODONE ER 10 MG TAB.ER PO SCH
[2021-06-25] MEDS ORDERED: Propofol 200 MG/20 ML SDV ONE ×2 (06:16→07:49)
[2021-06-25] MEDS ORDERED: fentaNYL 100 MCG/2 ML SDV ONE (06:16)
[2021-06-25] MEDS ORDERED: Midazolam 1 MG/ML 2 ML SDV ONE (06:17)
[2021-06-25] MEDS ORDERED: Bupivacaine 0.25% 10 ML SDV ONE (06:20)
[2021-06-25] MEDS ORDERED: Lidocaine 1% 30 ML SDV ONE (06:20)
--- NOTE | 2021-06-25 06:32 | PCM.PREANE ---
Preanesthetic Assessment - Procedure Proposed Procedure: Right carpal tunnel release - Anesthesia/Transfusion/Family Hx Anesthesia History: Prior Anesthesia Without Reaction Family History of Anesthesia Reaction: No Transfusion History: No Prior Transfusion(s) Intubation History: Unknown - Review of Systems General: No Symptoms Pulmonary: No Symptoms Cardiovascular: No Symptoms Gastrointestinal: No Symptoms Neurological: Numbness (Right fingers and right foot), Paresthesia (Neuropathy in right foot) Other: Reports: Liver Problems (Elevated LFTs), Depression, Anxiety - Physical Assessment NPO Status Date: 06/24/21 NPO Status Time: 21:30 Vital Signs: 142/84 HR 80 97.2 RR 16 96% Height: 1.5 m Weight: 66.9 kg ASA Class: 2 Mental Status: Alert & Oriented x3 Airway Class: Mallampati = 2 Dentition: Reports: Bluff(s), Missing Tooth/Teeth, Caries Thyro-Mental Finger Breadths: 3 Mouth Opening Finger Breadths: 3 ROM/Head Extension: Full Lungs: Clear to Auscultation, Normal Respiratory Effort Cardiovascular: Regular Rate, Regular Rhythm, No Murmurs - Lab Values: Patient continued taking lasix but stopped taking her potassium a week ago, checking a CMP to see if patient is okay to proceed. - Imaging/EKG Impressions: Anesthetic record from 03/23/21 patient had an EKG showing NSR HR 72 and ECHO 55- 60% - Allergies Allergies/Adverse Reactions: Allergies Allergy/AdvReac Type Severity Reaction Status Date / Time No Known Allergies Allergy Verified 06/24/21 15:48 - Blood Blood Available: No Product(s) Available: None - Acknowledgements Anesthesia Type Planned: MAC Pt an Appropriate Candidate for the Planned Anesthesia: Yes Alternatives and Risks of Anesthesia Discussed w Pt/Guardian: Yes Pt/Guardian Understands and Agrees with Anesthesia Plan: Yes PreAnesthesia Questionnaire HEENT History: Reports: Cataract, Impaired Vision Other HEENT History: wears glasses Cardiovascular History: Reports: CAD, High Cholesterol, Hypertension Respiratory History: Reports: None Gastrointestinal History: Reports: Colon Polyp, Diverticulosis, Hemorrhoids, Other (See Below) Other Gastrointestinal History: elevated LFTS, tubulovillous adenoma Genitourinary History: Reports: None 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: Musculoskeletal History: Reports: Arthritis, Fracture, Gout, Osteoporosis, Other (See Below) Other Musculoskeletal History: left knee pain, broken wrist x 2, chronic pain, carpal tunnel syndrome Neurological History: Reports: Other (See Below) Other Neuro History: henderson's palsy, lumbar stenosis, with neurogenic claudication Psychiatric History: Reports: Anxiety, Depression Endocrine/Metabolic History: Reports: Osteopenia, Vitamin D Deficiency, Other (See Below) Other Endocrine/Metabolic History: hypoglycemia Hematologic History: Reports: Anemia Immunologic History: Reports: None Oncologic (Cancer) History: Reports: None Dermatologic History: Reports: Other (See Below) Other Dermatologic History: lymphadema - Infectious Disease History Infectious Disease History: Reports: Chicken Pox, Influenza - Past Surgical History Head Surgeries/Procedures: Reports: None HEENT Surgical History: Reports: Cataract Surgery Cardiovascular Surgical History: Reports: None Respiratory Surgical History: Reports: None GI Surgical History: Reports: Colonoscopy Female Surgical History: Reports: Breast Biopsy Male Surgical History: Reports: None Endocrine Surgical History: Reports: None Neurological Surgical History: Reports: Discectomy, Laminectomy, Lumbar Spine Other Neurological Surgeries/Procedures: L4-5, L5-S1 fusion Musculoskeletal Surgical History: Reports: Arthroscopic Procedure, Hip Replacement, Knee Replacement, Shoulder Surgery Other Musculoskeletal Surgeries/Procedures:: LTKA on 06/05/18, arm surgery Oncologic Surgical History: Reports: None Dermatological Surgical History: Reports: None - SUBSTANCE USE Tobacco Use Status *Q: Former Tobacco User (Quit 4 years ago) Second Hand Smoke Exposure: No Days Per Week of Alcohol Use: 1 Number of Drinks Per Day: 1 Total Drinks Per Week: 1 Date of Last Drink: 06/21/21 Time of Last Drink: 20:00 Recreational Drug Use History: No - HOME MEDS Home Medications: Home Meds Calcium Carb/D3/Magnesium/Zinc [Ozzy Mag Zinc + D3] 1 tab PO BID 06/03/18 [History] Cholecalciferol (Vitamin D3) [Vitamin D3] 5,000 unit PO DAILY 06/03/18 [History] Cyanocobalamin (Vitamin B-12) [Vitamin B-12] 1,000 mcg PO DAILY 06/03/18 [History] Folic Acid 1 mg PO DAILY 06/03/18 [History] Glucosamine/D3/Boswellia Ruthie [Osteo Bi-Flex Caplet] 1 tab PO DAILY 06/03/18 [History] LORazepam [Ativan] 0.5 mg PO BID PRN 06/03/18 [History] Latanoprost [Xalatan 0.005% Ophth Soln] 1 drop EYEBOTH BEDTIME 06/03/18 [History] Potassium Chloride 10 meq PO DAILY 06/03/18 [History] Amoxicillin 2,000 mg PO ASDIRECTED PRN 03/20/21 [History] Aspirin 81 mg PO DAILY 03/20/21 [History] Ezetimibe [Zetia] 10 mg PO DAILY 03/20/21 [History] Furosemide [Lasix] 40 mg PO DAILY 03/20/21 [History] Rosuvastatin [Crestor] 10 mg PO BEDTIME 03/20/21 [History] Vit A/Vit C/Vit E/Zinc/Copper [Icaps Areds Formula] 2 tab PO DAILY 03/20/21 [History] allopurinoL [Zyloprim] 100 mg PO DAILY 03/20/21 [History] Lactobacillus Combo No.10 [Probiotic] 1 cap PO DAILY 06/24/21 [History] Hydrocodone/Acetaminophen [HYDROcodone-Acetaminophen 5-325 MG] 1 each PO Q6H PRN #4 tablet 06/25/21 [Rx] - CURRENT (IN HOUSE) MEDS Current Meds: Current Medications Lactated Ringer's (Ringers, Lactated) 1,000 mls @ 125 mls/hr IV ASDIRECTED JESSA Stop: 06/25/21 23:00 Lidocaine/Sodium Bicarbonate (Lidocaine 1%/Sod Bicarbonate In Ns 8.4% 1 Ml Syringe) 0.25 ml IDERM ONETIME PRN PRN Reason: Prior to IV Start Stop: 06/25/21 23:00 Sodium Chloride (Sodium Chloride 0.9% 10 Ml Syringe) 10 ml FLUSH ASDIRECTED PRN PRN Reason: Keep Vein Open Stop: 06/25/21 23:00 Discontinued Medications Bupivacaine HCl (Bupivacaine 0.25% 10 Ml Sdv) Confirm Administered Dose 10 ml .ROUTE .STK-MED ONE Stop: 06/25/21 06:21 Fentanyl (Fentanyl 100 Mcg/2 Ml Sdv) Confirm Administered Dose 100 mcg .ROUTE .STK-MED ONE Stop: 06/25/21 06:17 Lidocaine HCl (Lidocaine 1% 30 Ml Sdv) Confirm Administered Dose 30 ml .ROUTE .STK-MED ONE Stop: 06/25/21 06:21 Midazolam HCl (Midazolam 1 Mg/Ml 2 Ml Sdv) Confirm Administered Dose 2 mg .ROUTE .STK-MED ONE Stop: 06/25/21 06:18 Propofol (Propofol 200 Mg/20 Ml Sdv) Confirm Administered Dose 200 mg .ROUTE .S TK-MED ONE Stop: 06/25/21 06:17
[2021-06-25] MEDS ORDERED: ceFAZolin 1 GM Vial ONE (07:53)
--- NOTE | 2021-06-25 08:49 | PCM48HPAN ---
Post Anesthesia Note - EVALUATION WITHIN 48HRS OF ANESTHETIC Vital Signs in Normal Range: Yes Patient Participated in Evaluation: Yes Respiratory Function Stable: Yes Airway Patent: Yes Cardiovascular Function Stable: Yes Hydration Status Stable: Yes Pain Control Satisfactory: Yes Nausea and Vomiting Control Satisfactory: Yes Mental Status Recovered: Yes Vital Signs: Last Vital Signs Temp 97.2 F 06/25/21 06:15 Pulse 80 06/25/21 06:15 Resp 16 06/25/21 06:15 BP 142/84 H 06/25/21 06:15 Pulse Ox 96 06/25/21 06:15 - COMMENTS/OBSERVATIONS Free Text/Narrative:: Patient denying pain, nausea, or itching. Patient tolerated procedure well.
[2021-06-25 11:05] VITALS: BP 156/93; PULSE 84
--- NOTE | 2021-07-08 17:16 | PCM.OPNOTE ---
- General Post-Op/Procedure Note Date of Surgery/Procedure: 06/25/21 Operative Procedure(s): right carpal tunnel release Pre Op Diagnosis: right median nerve compression neuropathy Post-Op Diagnosis: Same Anesthesia Technique: Local, MAC Primary Surgeon: Johnathan Rodriguez Anesthesia Provider: Ramiro Ye [employer] Sweeper Operator: Magdalene Garcia EBL in mLs: 5 Complications: None Condition: Good
--- NOTE | 2021-07-08 17:35 | OR ---
DATE OF OPERATION: 06/25/2021 SURGEON: Johnathan Rodriguez MD OPERATION PERFORMED: Right carpal tunnel release. PREOPERATIVE DIAGNOSIS: Right median nerve compression neuropathy. POSTOPERATIVE DIAGNOSIS: Right median nerve compression neuropathy. ANESTHESIA: Local MAC. ANESTHESIA PROVIDER: Ramiro Ye RECORDING STUDIO SETUP WORKER: Magdalene Garcia PA-C ESTIMATED BLOOD LOSS: Less than 5 mL. COMPLICATIONS: None. CONDITION: Stable. DESCRIPTION OF PROCEDURE: The patient was identified in the preop holding area. Proper site was marked and identified by the surgeon. The patient was taken back to the operating theater where after adequate anesthesia, the patient's right upper extremity was sterilely prepped and draped in the usual sterile fashion. OR time-out was performed. The patient did not receive antibiotics and it is not indicated for soft tissue hand procedure. At this time, the right upper extremity was exsanguinated and an Esmarch was used as a tourniquet on the forearm. At this time, using 1% lidocaine without epinephrine and 0.25% Marcaine without epinephrine, the palmar cutaneous branch of the median nerve was anesthetized and then the incisional site was anesthetized using Quinones cardinal line and ulnar border of the fourth digit as reference. Once this had set up, an incision was made. Blunt dissection was taken down to the palmar cutaneous fascia. Palmar cutaneous fascia was incised with a Koi blade. At this time, the transverse carpal ligament was identified. A small rent was made in the transverse carpal ligament with a Koi blade under direct visualization. Resection of the transverse carpal ligament was done distally using tenotomy scissors making sure to stop short of the palmar arch. At this time, attention was turned proximally after it was found to be adequately released. Using the tenotomy scissors keeping the tips ulnar to protect the palmar cutaneous branch of the median nerve, the superficial forearm fascia as well as the transverse carpal ligament were resected proximally. It was found to be adequate release both proximally and distally. At this time, adequate saline was irrigated through the wound. 4-0 nylon sutures were used closure of the skin. The patient was placed in a sterile soft dressing and sent to PACU in stable condition. MMODAL /[id number]
== END 2021-06-25 10:05 | disposition home or self-care (01) ==
LOC: JD.SDS 06:09
PROVIDERS: ATTEND Orthopaedic Surgery
DX: G56.01 Carpal tunnel syndrome, right upper limb (principal); G62.9 Polyneuropathy, unspecified; G89.29 Other chronic pain; E78.2 Mixed hyperlipidemia; Z86.010 Personal history of colon polyps; D75.89 Other specified diseases of blood and blood-forming organs; E55.9 Vitamin D deficiency, unspecified; M85.80 Other specified disorders of bone density and structure, unspecified site; F41.9 Anxiety disorder, unspecified; R60.9 Edema, unspecified; Z88.0 Allergy status to penicillin; Z79.899 Other long term (current) drug therapy; Z87.891 Personal history of nicotine dependence
CPT/HCPCS: 36415; 64721; 80053; J0690; J2250; J2704; J3010; J3490; J7120; 01810; 99100